=== PATIENT | female | born 1995 | race Caucasian/White ===

== ENCOUNTER 2016-02-29 11:15 | Emergency (ER) | payer BC, OTHER ==
[2016-02-29 11:27] VITALS: TEMP 97.8
--- NOTE | 2016-02-29 12:06 | ED ---
Abdominal Pain HPI - General Chief Complaint: Abdominal Pain Stated Complaint: cramping, preg unknown Time Seen by Provider: 02/29/16 11:40 Source: patient, RN notes reviewed Mode of arrival: ambulatory Limitations: no limitations - History of Present Illness Initial Comments: 20-year-old female presents emergency Department chief complaint of abdominal cramping . Patient states she recently found out she was using at home tests. Patient states she is A0. Patient is unsure how far along she is. She states that the last no menstrual cycle was at the beginning severed though she states she only had a day of bleeding. She states prior to that it was at the end of November. Patient denies any vomiting states she has occasional nausea. Denies any fever, chills, dysuria. Denies any vaginal bleeding or vaginal discharge. Patient states she contacted Dr. Ray and is waiting for an appointment. - Related Data Home Medications Medication Instructions Recorded Confirmed Albuterol Inhaler [Ventolin Hfa 1 - 2 puff INHALATION RT-Q6H PRN 12/05/15 Inhaler] Pnv with Ca,No.72/Iron/FA 1 tab PO DAILY 02/29/16 02/29/16 [ Plus Tablet] Allergies Allergy/AdvReac Type Severity Reaction Status Date / Time No Known Allergies Allergy Verified 02/29/16 11:27 Review of Systems ROS Statement: Those systems with pertinent positive or pertinent negative responses have been documented in the HPI. ROS Other: All systems not noted in ROS Statement are negative. Past Medical History Past Medical History: No Reported History History of Any Multi-Drug Resistant Organisms: None Reported Past Surgical History: No Surgical Hx Reported Past Psychological History: Anxiety, Depression Smoking Status: Former smoker Past Alcohol Use History: Occasional Past Drug Use History: Marijuana General Exam Limitations: no limitations General appearance: alert, in no apparent distress Head exam: Present: atraumatic, normocephalic, normal inspection Respiratory exam: Present: normal lung sounds bilaterally. Absent: respiratory distress, wheezes, rales, rhonchi, stridor Cardiovascular Exam: Present: regular rate, normal rhythm, normal heart sounds. Absent: systolic murmur, diastolic murmur, rubs, gallop, clicks GI/Abdominal exam: Present: soft, normal bowel sounds. Absent: distended, tenderness, guarding, rebound, rigid Skin exam: Present: warm, dry, intact, normal color. Absent: rash Course Vital Signs 02/29/16 11:24 Temperature 97.8 F Pulse Rate 90 Respiratory 20 Rate Blood Pressure 135/90 O2 Sat by Pulse 99 Oximetry Medical Decision Making - Medical Decision Making Patient declined testing which included HIV, hepatitis and syphilis testing 20-year-old female presented for abdominal cramping . Patient ultrasound does not reveal any IUP at this time though her beta hCG is only 219. Patient is early in . Patient will follow-up with her own joint for repeat hCG levels. Patient refused pelvic exam. - Lab Data Result diagrams: 02/29/16 12:05 02/29/16 12:05 Lab Results 02/29/16 02/29/16 02/29/16 Range/Units 12:05 12:05 12:05 WBC 9.2 (4.0-11.0) k/uL RBC 4.38 (3.80-5.40) m/uL Hgb 12.7 (11.4-16.0) gm/dL Hct 38.5 (34.0-46.0) % MCV 87.9 (80.0-100.0) fL MCH 28.9 (25.0-35.0) pg MCHC 32.9 (31.0-37.0) g/dL RDW 13.0 (11.5-15.5) % Plt Count 299 (150-450) k/uL Neutrophils % 59 % Lymphocytes % 30 % Monocytes % 7 % Eosinophils % 1 % Basophils % 0 % Neutrophils # 5.4 (1.3-7.7) k/uL Lymphocytes # 2.8 (1.0-4.8) k/uL Monocytes # 0.6 (0-1.0) k/uL Eosinophils # 0.1 (0-0.7) k/uL Basophils # 0.0 (0-0.2) k/uL Sodium 141 (137-145) mmol/L Potassium 4.1 (3.5-5.1) mmol/L Chloride 105 (98-107) mmol/L Carbon Dioxide 23 (22-30) mmol/L Anion Gap 13 mmol/L BUN 9 (7-17) mg/dL Creatinine 0.68 (0.52-1.04) mg/dL Est GFR (MDRD) Af Amer >60 (>60 ml/min/1.73 sqM) Est GFR (MDRD) Non-Af >60 (>60 ml/min/1.73 sqM) Glucose 97 (74-99) mg/dL Calcium 9.2 (8.4-10.2) mg/dL HCG, Quant 214.8 mIU/mL Urine Color Urine Appearance (Clear) Urine pH (5.0-8.0) Ur Specific Leland (1.001-1.035) Urine Protein (Negative) Urine Glucose (UA) (Negative) Urine Ketones (Negative) Urine Blood (Negative) Urine Nitrate (Negative) Urine Bilirubin (Negative) Urine Urobilinogen (<2.0) mg/dL Ur Leukocyte Esterase (Negative) Urine RBC (0-5) /hpf Urine WBC (0-5) /hpf Ur Squamous Epith Cells (0-4) /hpf Urine Bacteria (None) /hpf Urine Mucus (None) /hpf Blood Type A Positive Blood Type Recheck No 02/29/16 Range/Units 12:05 WBC (4.0-11.0) k/uL RBC (3.80-5.40) m/uL Hgb (11.4-16.0) gm/dL Hct (34.0-46.0) % MCV (80.0-100.0) fL MCH (25.0-35.0) pg MCHC (31.0-37.0) g/dL RDW (11.5-15.5) % Plt Count (150-450) k/uL Neutrophils % % Lymphocytes % % Monocytes % % Eosinophils % % Basophils % % Neutrophils # (1.3-7.7) k/uL Lymphocytes # (1.0-4.8) k/uL Monocytes # (0-1.0) k/uL Eosinophils # (0-0.7) k/uL Basophils # (0-0.2) k/uL Sodium (137-145) mmol/L Potassium (3.5-5.1) mmol/L Chloride (98-107) mmol/L Carbon Dioxide (22-30) mmol/L Anion Gap mmol/L BUN (7-17) mg/dL Creatinine (0.52-1.04) mg/dL Est GFR (MDRD) Af Amer (>60 ml/min/1.73 sqM) Est GFR (MDRD) Non-Af (>60 ml/min/1.73 sqM) Glucose (74-99) mg/dL Calcium (8.4-10.2) mg/dL HCG, Quant mIU/mL Urine Color Yellow Urine Appearance Cloudy H (Clear) Urine pH 6.0 (5.0-8.0) Ur Specific Leland 1.022 (1.001-1.035) Urine Protein Trace H (Negative) Urine Glucose (UA) Negative (Negative) Urine Ketones Negative (Negative) Urine Blood Trace H (Negative) Urine Nitrate Negative (Negative) Urine Bilirubin Negative (Negative) Urine Urobilinogen <2.0 (<2.0) mg/dL Ur Leukocyte Esterase Trace H (Negative) Urine RBC 7 H (0-5) /hpf Urine WBC 4 (0-5) /hpf Ur Squamous Epith Cells 11 H (0-4) /hpf Urine Bacteria Rare H (None) /hpf Urine Mucus Few H (None) /hpf Blood Type Blood Type Recheck Disposition Clinical Impression: Abdominal pain during Disposition: HOME SELF-CARE Condition: Stable Instructions: Abdominal Pain in (ED) Additional Instructions: Please return to the Emergency Department if symptoms worsen or any other concerns. Time of Disposition: 13:22
[2016-02-29 12:22] LABS: Basophils % (A) 0 %; CH 28.4; CHCM 32.5; Eosinophils # (A) 0.1 k/uL (0-0.7); Eosinophils % (A) 1 %; HCT 38.5 % (34.0-46.0); HDW 2.34; HGB 12.7 gm/dL (11.4-16.0); Luc # (Auto) 0.25; Luc % (Auto) 3; Lymphocytes # (A) 2.8 k/uL (1.0-4.8); Lymphocytes % (A) 30 %; MCH 28.9 pg (25.0-35.0); MCHC 32.9 g/dL (31.0-37.0); MCV 87.9 fL (80.0-100.0); Monocytes # (A) 0.6 k/uL (0-1.0); Monocytes % (A) 7 %; Neutrophils # (A) 5.4 k/uL (1.3-7.7); Neutrophils % (A) 59 %; RBC 4.38 m/uL (3.80-5.40); WBC 9.2 k/uL (4.0-11.0); WBC (Perox) 9.04
[2016-02-29 12:31] LABS: Appearance,Urine Cloudy (Clear); Bacteria,Urine Rare /hpf; Bilirubin,Urine Negative (Negative); Glucose,Urine (UA) Negative (Negative); Ketones,Urine Negative (Negative); Leukocyte Esterase,Urine Trace (Negative); Mucus,Urine Few /hpf; Nitrite,Urine Negative (Negative); Particle Count 10126; Protein,Urine Trace (Negative); RBC,Urine 7 /hpf (0-5); Specific Gravity,Urine 1.022 (1.001-1.035); Squamous Epithelial Cell,Urine 11 /hpf (0-4); UA Billing (MACRO vs. MICRO) MICRO; Urobilinogen,Urine <2.0 mg/dL (<2.0); WBC,Urine 4 /hpf (0-5)
[2016-02-29 12:32] LABS: Anion Gap 13 mmol/L; Blood Urea Nitrogen 9 mg/dL (7-17); Calcium 9.2 mg/dL (8.4-10.2); Carbon Dioxide 23 mmol/L (22-30); Chloride 105 mmol/L (98-107); Glucose 97 mg/dL (74-99); Non-African American GFR(MDRD) >60 (>60 ml/min/1.73 sqM); Potassium 4.1 mmol/L (3.5-5.1); Sodium 141 mmol/L (137-145)
[2016-02-29 12:50] LABS: HCG,Quantitative Serum 214.8 mIU/mL
--- NOTE | 2016-02-29 13:08 | US ---
EXAMINATION TYPE: US OB <= 14 wk fetus DATE OF EXAM: 02/29/2016 12:33 PM COMPARISON: NONE CLINICAL HISTORY: Patient took a home test that came back positive and is having cramping EXAM PERFORMED: Transabdominal (TA) EXAM MEASUREMENTS: GESTATIONAL AGE / DATING Physician Established: not yet established Dates by LMP: (4 weeks/0 days) EDC: 11/07/16 Dates by First Scan: 1st scan today Dates by Current Scan: unable to date by today's scan MATERNAL ANATOMY Uterus: 7.9 x 4.0 x 4.6cm Right Ovary: 3.1 x 2.3 x 2.7cm Left Ovary: 2.7 x 1.9 x 1.9cm Post CDS / Adnexa: wnl GESTATION / SURVEY IUP: No IUP seen at this time Date of LMP: 02/01/2016 Beta HcG (if available): not available TECHNOLOGIST IMPRESSION: No IUP seen at this time, thickened endometrium at 1.7cm IMPRESSION: We have not identified intrauterine or extrauterine gestation at this time. Short-term follow-up +/- 0 beta hCGs would be suggested.
[2016-02-29 13:36] VITALS: BP 134/81; PULSE 86; RESP 18
== END 2016-02-29 13:36 | disposition home or self-care (01) ==
LOC: EC 11:15
DX: O26.891 Other specified pregnancy related conditions, first trimester (principal); Z3A.01 Less than 8 weeks gestation of pregnancy; R10.9 Unspecified abdominal pain; Z79.899 Other long term (current) drug therapy; Z87.891 Personal history of nicotine dependence
CPT/HCPCS: 36415; 76801; 80048; 81001; 84702; 85025; 86900; 86901; 99284

== ENCOUNTER → 2016-04-20 | Outpatient (CLI) | payer BC, OTHER ==
--- NOTE | 2016-04-20 17:22 | US ---
EXAMINATION TYPE: US OB <= 14 wk fetus DATE OF EXAM: 04/20/2016 4:28 PM COMPARISON: NONE CLINICAL HISTORY: 20-year-old female, Z36 Confirm Dates. Date of LMP: 02/01/16 Beta HcG (if available): unavailable EXAM PERFORMED: Transabdominal (TA) FINDINGS: EXAM MEASUREMENTS: GESTATIONAL AGE / DATING Physician Established: not established Dates by LMP: (11 weeks/2 days) EDC: 11/07/16 Dates by First Scan: unable to visualize IUP on prior exam Dates by Current Scan for: (12 weeks/0 days) EDC: 11/02/16 MATERNAL ANATOMY Uterus: 12.3 x 7.3 x 8.5cm Right Ovary: 3.7 x 2.6 x 1.8cm Left Ovary: 2.7 x 2.5 x 1.3cm Post CDS / Adnexa: appears wnl Presence of free fluid: no Presence of corpus luteal cyst: yes, hypoechoic area right ovary = 1.9 x 1.6 x 2.1cm GESTATION / SURVEY CRL: 5.3cm (12 weeks/0 days) Yolk Sac (normal less than 6mm): 3.7 mm Heart Rate: 149 bpm Rhythm: Normal IUP: Viable IUP Nuchal Translucency 10-14wks (normal less than 3mm): 1.8 mm TECHNOLOGIST NOTES: Single viable IUP 12wks/0days with RAYNE of 11/02/16. Probable corpus luteum righ t ovary IMPRESSION: 1. Single live intrauterine with estimated gestational age of 11 weeks 2 days by LMP. Curre nt ultrasound biometry places the gestation at 12 weeks 0 days by crown-rump length. Clinically corre late. 2. Complete survey recommended at 18-20 weeks.
== END | disposition home or self-care (01) ==
LOC: RADUSWWP 16:11
PROVIDERS: ATTEND Obstetrics & Gynecology
DX: Z36 Encounter for antenatal screening of mother (principal); Z3A.12 12 weeks gestation of pregnancy
CPT/HCPCS: 76801; 76813

== ENCOUNTER 2016-05-31 22:16 | Emergency (ER) | payer BC, OTHER ==
[2016-05-31 22:25] VITALS: BP 139/83; PULSE 95; RESP 18; TEMP 98
[2016-05-31] MEDS ORDERED: ACET/COD 300 MG/30 MG STARTER PACK 6 TAB BTL PO STA (22:40)
--- NOTE | 2016-05-31 22:43 | ED ---
Burn/Smoke HPI - General Chief complaint: Burn/Smoke Inhalation Stated complaint: burn Source: patient, RN notes reviewed Mode of arrival: ambulatory Limitations: no limitations - History of Present Illness Initial comments: Patient is a 20-year-old [employer] chief complaint of a burn from hot soup over her right upper thigh and right great toe. She reports that she was pulling a boiling water and spilled on her thigh. She states that the area of burn measures to be approximately the size of her hand. Patient is currently 17 weeks and is concerned that she is unable to have certain creams due to the fact she is . Patient states that she hasn't had any flores or injuries to her right leg or foot before. She reports that she is able to ambulate. She states that there is blistering over the thigh burn but no evidence of blistering or irritation over the great toe. - Related Data Previous Rx's Medication Instructions Recorded Acetaminophen-Codeine 300-30mg 1 tab PO Q8H PRN #8 tablet 05/31/16 [Tylenol #3] Allergies Allergy/AdvReac Type Severity Reaction Status Date / Time No Known Allergies Allergy Verified 05/31/16 22:25 Review of Systems ROS Statement: Those systems with pertinent positive or pertinent negative responses have been documented in the HPI. ROS Other: All systems not noted in ROS Statement are negative. Past Medical History Past Medical History: No Reported History History of Any Multi-Drug Resistant Organisms: None Reported Past Surgical History: No Surgical Hx Reported Past Psychological History: Anxiety, Bipolar, Depression Smoking Status: Former smoker Past Alcohol Use History: None Reported, Occasional Past Drug Use History: Marijuana General Exam - General Exam Comments Initial Comments: Pleasant 20-year-old female. No acute distress. Limitations: no limitations General appearance: alert, in no apparent distress Head exam: Present: atraumatic, normocephalic, normal inspection Eye exam: Present: normal appearance, PERRL, EOMI. Absent: scleral icterus, conjunctival injection, periorbital swelling ENT exam: Present: normal exam, mucous membranes moist Neck exam: Present: normal inspection. Absent: tenderness, meningismus, lymphadenopathy Respiratory exam: Present: normal lung sounds bilaterally. Absent: respiratory distress, wheezes, rales, rhonchi, stridor Cardiovascular Exam: Present: regular rate, normal rhythm, normal heart sounds. Absent: systolic murmur, diastolic murmur, rubs, gallop, clicks GI/Abdominal exam: Present: soft, normal bowel sounds. Absent: distended, tenderness, guarding, rebound, rigid Extremities exam: Present: normal inspection, full ROM, normal capillary refill. Absent: tenderness, pedal edema, joint swelling, calf tenderness Back exam: Present: normal inspection Neurological exam: Present: alert, oriented X3, CN II-XII intact Psychiatric exam: Present: normal affect, normal mood Skin exam: Present: warm, dry, intact, normal color, erythema (Erythema and blistering over the area of burn over the right upper thigh. Slight erythema over the great toe near the nailbed. No evidence of blistering.). Absent: rash Expanded 1 - 2nd degree burn measuring 1% total body sufrace area. 2 - slight erythema over great toe near nail, no blistering. Course Vital Signs 05/31/16 22:24 Temperature 98.0 F Pulse Rate 95 Respiratory 18 Rate Blood Pressure 139/83 O2 Sat by Pulse 97 Oximetry Medical Decision Making - Medical Decision Making Patient is a 20-year-old female with a second-degree burn over her right thigh measuring approximately 1% of total body surface area. Significant blistering. Patient was given ice to put over the burn. There is also evidence of erythema over the right great toe towards the nail blood. No evidence of blistering on the toe. Patient has full range of motion of the leg and no evidence of any other flores on the body. Patient reports that she does not want received Silvadene cream as this could be toxic to the unborn child. She has chronic 17 weeks . Patient will be discharged with a Tylenol 3 starter pack for pain and a very short prescription for Tylenol 3 for the pain. Also discussed apply antibiotic ointment [id number] such as Neosporin with pain relief over the wound and to keep it covered. Patient's family and patient agree with treatment plan will comply. Return parameters were discussed. Disposition Clinical Impression: Burn of thigh, right, Burn of first degree of right toe(s) (nail), initial encounter Disposition: HOME SELF-CARE Condition: Good Instructions: Second Degree Burn (ED) Additional Instructions: Continue to apply ice over the area. Keep the wound covered and apply triple antibiotic ointment over the area since it started to open. Do not pick at the blistering. Return to the emergency department if any alarming signs or symptoms occur. Remain hydrated. Only take pain medication erratically to help with sleep with the pain. Prescriptions: Acetaminophen-Codeine 300-30mg [Tylenol #3] 1 tab PO Q8H PRN #8 tablet PRN Reason: Pain Referrals: Leana Flanagan MD [Primary Care Provider] - 1-2 days Time of Disposition: 22:41
== END 2016-05-31 22:54 | disposition home or self-care (01) ==
LOC: EC 22:16
DX: O9A.219 Injury, poisoning and certain other consequences of external causes complicating pregnancy, unspecified trimester (principal); T24.211A Burn of second degree of right thigh, initial encounter; T25.131A Burn of first degree of right toe(s) (nail), initial encounter; T31.0 Burns involving less than 10% of body surface; Z87.891 Personal history of nicotine dependence; Z3A.17 17 weeks gestation of pregnancy; X10.0XXA Contact with hot drinks, initial encounter
CPT/HCPCS: 99283

== ENCOUNTER → 2016-06-06 | Outpatient (CLI) | payer BC, OTHER ==
[2016-06-06 16:39] LABS: CH 28.8; CHCM 32.7; HGB 12.1 gm/dL (11.4-16.0); MCH 29.7 pg (25.0-35.0); MCHC 33.5 g/dL (31.0-37.0); MCV 88.5 fL (80.0-100.0); Mean Platelet Volume 7.7; RBC 4.06 m/uL (3.80-5.40); RDW 13.8 % (11.5-15.5); WBC 12.5 k/uL (4.0-11.0)
[2016-06-06 16:45] LABS: Glucose 100 mg/dL (74-99); Non-African American GFR(MDRD) >60 (>60 ml/min/1.73 sqM)
[2016-06-06 17:15] LABS: Hepatitis B Surface Ag Index 0.05
[2016-06-07 06:21] LABS: Toxoplasma Antibody (IgG) <3.0 IU/mL (<7.2)
[2016-06-07 08:20] LABS: HIV-1/HIV-2 Ab Screen NONREAC (NON REAC)
[2016-06-07 12:59] LABS: Alpha Fetoprotein 37.3 ng/mL; Alpha Fetoprotein (M.O.M) 1.25; B-HCG (M.O.M.) 0.81; Gestational Age (days) 0; Human Chorionic Gonadotropin 14.1 IU/mL; Inhibin A (M.O.M.) 1.11; Interpretation SeeBelow; Maternal Age at EDD (Yrs) 19; Unconjugated Estriol (M.O.M.) 0.78
== END | disposition home or self-care (01) ==
LOC: LABWHC1 16:00
PROVIDERS: ATTEND Obstetrics & Gynecology
DX: Z34.82 Encounter for supervision of other normal pregnancy, second trimester (principal); Z3A.00 Weeks of gestation of pregnancy not specified
CPT/HCPCS: 36415; 82105; 82565; 82677; 82947; 83021; 84702; 85027; 86336; 86762; 86777; 86778; 86780; 86850; 86900; 86901; 87340; 87389

== ENCOUNTER → 2016-07-19 | Outpatient (CLI) | payer BC, OTHER ==
[2016-07-19 11:26] LABS: CH 29.1; CHCM 31.7; HCT 36.8 % (34.0-46.0); HGB 11.9 gm/dL (11.4-16.0); MCHC 32.5 g/dL (31.0-37.0); MCV 92.4 fL (80.0-100.0); Mean Platelet Volume 7.4; RBC 3.98 m/uL (3.80-5.40); RDW 13.7 % (11.5-15.5); WBC 12.9 k/uL (4.0-11.0)
== END | disposition home or self-care (01) ==
LOC: LABWHC1 09:46
PROVIDERS: ATTEND Obstetrics & Gynecology
DX: Z34.02 Encounter for supervision of normal first pregnancy, second trimester (principal); Z3A.00 Weeks of gestation of pregnancy not specified
CPT/HCPCS: 36415; 82950; 85027

== ENCOUNTER → 2016-07-27 | Outpatient (CLI) | payer BC, OTHER ==
[2016-07-27 12:52] LABS: Glucose 3 Hour, Gest 123 mg/dL
== END | disposition home or self-care (01) ==
LOC: LABWHC1 08:37
PROVIDERS: ATTEND Obstetrics & Gynecology
DX: O99.810 Abnormal glucose complicating pregnancy (principal); Z3A.00 Weeks of gestation of pregnancy not specified
CPT/HCPCS: 36415; 82951; 82952

== ENCOUNTER 2016-08-27 16:14 | Emergency (ER) | payer BC ==
[2016-08-27 16:37] VITALS: BP 130/80; PULSE 87; RESP 20; TEMP 98.8
--- NOTE | 2016-08-27 17:12 | ED ---
ENT HPI - General Chief complaint: Dental/Oral Stated complaint: Dental Pain Time Seen by Provider: 08/27/16 16:54 Source: patient, RN notes reviewed Mode of arrival: ambulatory Limitations: no limitations - History of Present Illness Initial comments: 20 yo female presents to the emergency Department chief complaint of left upper dental pain. She recently had a tooth filled and has since had pain in the area. She called her dentist in the office is closed. It is taking Tylenol without improvement. They were thinking maybe she needed antibiotic. His been no drainage or discharge from the area no fever or chills. Patient states "mouth. There is no radiation into the neck. Patient denies any recent fever, chills, shortness of breath, chest pain, back pain, abdominal pain, nausea vomiting, numbness or tingling, dysuria or hematuria, constipation or diarrhea, headaches or visual changes, or any other current symptoms. - Related Data Previous Rx's Medication Instructions Recorded Acetaminophen-Codeine 300-30mg 1 tab PO Q8H PRN #8 tablet 05/31/16 [Tylenol #3] Penicillin V Potassium [Pen Vee K] 500 mg PO TID #40 tab 08/27/16 Allergies Allergy/AdvReac Type Severity Reaction Status Date / Time No Known Allergies Allergy Verified 05/31/16 22:25 Review of Systems ROS Statement: Those systems with pertinent positive or pertinent negative responses have been documented in the HPI. ROS Other: All systems not noted in ROS Statement are negative. Past Medical History Past Medical History: No Reported History History of Any Multi-Drug Resistant Organisms: None Reported Past Surgical History: No Surgical Hx Reported Past Psychological History: Anxiety, Bipolar, Depression Smoking Status: Former smoker Past Alcohol Use History: None Reported, Occasional Past Drug Use History: Marijuana General Exam Limitations: no limitations General appearance: alert, in no apparent distress Eye exam: Present: normal appearance, PERRL, EOMI. Absent: scleral icterus, conjunctival injection, periorbital swelling ENT exam: Present: normal exam, mucous membranes moist Expanded Ear exam: Present: normal external inspection Mouth exam: Present: normal external inspection Teeth exam: Present: dental caries (Diffusely), dental tenderness # (13), other (No abscess noted) Throat exam: normal inspection, tonsillar erythema Neck exam: Present: normal inspection. Absent: tenderness, meningismus, lymphadenopathy Respiratory exam: Present: normal lung sounds bilaterally. Absent: respiratory distress, wheezes, rales, rhonchi, stridor Cardiovascular Exam: Present: regular rate, normal rhythm, normal heart sounds. Absent: systolic murmur, diastolic murmur, rubs, gallop, clicks Neurological exam: Present: alert, oriented X3 Psychiatric exam: Present: normal affect, normal mood Skin exam: Present: warm, dry, intact, normal color. Absent: rash Course Vital Signs 08/27/16 16:35 Temperature 98.8 F Pulse Rate 87 Respiratory 20 Rate Blood Pressure 130/80 O2 Sat by Pulse 99 Oximetry Medical Decision Making - Medical Decision Making 20-year-old female presents emergency room chief complaint of left-sided dental pain. At this time the patient will be started on Pen-Vee K and Tylenol for pain control. We discussed return parameters and follow-up. Patient stated that she understood all questions have been answered. She will be discharged. Disposition Clinical Impression: Dental caries Disposition: HOME SELF-CARE Condition: Stable Instructions: Dental Caries (ED) Additional Instructions: Please use medication as discussed. Please follow up with family doctor if symptoms have not improved over the next two days. Please return to the emergency room if your symptoms increase or worsen or for any other concerns. Prescriptions: Penicillin V Potassium [Pen Vee K] 500 mg PO TID #40 tab Referrals: Leana Flanagan MD [Primary Care Provider] - 1-2 days Time of Disposition: 17:12
== END 2016-08-27 17:17 | disposition home or self-care (01) ==
LOC: EC 16:14
DX: K02.9 Dental caries, unspecified (principal); Z87.891 Personal history of nicotine dependence
CPT/HCPCS: 99282

== ENCOUNTER 2016-10-18 23:05 | Outpatient (CLI) | payer BC ==
[2016-10-18 23:50] VITALS: BP 111/59; PULSE 93; RESP 16; TEMP 96.4
--- NOTE | 2016-10-19 07:52 | P.MSEPDOC ---
Presenting Problems - Arrival Data Date of Arrival on Unit: 10/18/16 Time of Arrival on Unit: 23:05 Mode of Transport: Wheelchair - Complaint OB-Reason for Admission/Chief Complaint: Pain Comment: numeric scale "6", lower abd pain x2 days, constant Medical History - Information : 1 Para: 0 Term: 0 : 0 Abortions: Spontaneous or Elective: 0 Number of Living Children: 0 - Gestational Age Expected Date of Delivery: 11/07/16 Gestational Age by RAYNE (wks/days): 37 Weeks and 2 Days Review of Systems - Review of Systems Constitutional: No problems Breast: No problems ENT: No problems Cardiovascular: No problems Respiratory: No problems Gastrointestinal: No problems Genitourinary: No problems Musculoskeletal: No problems Neurological: No problems Skin: No problems Vital Signs - Temperature Temperature: 96.4 F Temperature Source: Temporal Artery Scan - Pulse Right Sitting Brachial Pulse Rate: 93 Pulse Assessment Method: Automatic Cuff - Respirations Respiratory Rate: 16 Oxygen Delivery Method: Room Air O2 Sat by Pulse Oximetry: 97 - Blood Pressure Right Arm Sitting Blood Pressure: 111/59 Blood Pressure Mean: 76 Blood Pressure Source: Automatic Cuff Medical Screen Scoring (Pre) - Cervical Exam Dilation: 1-3 cm = 1 Effacement: More than 50% = 2 Membranes: Intact - Uterine Contractions Frequency: N/A Duration: N/A Intensity: N/A - Maternal Vital Signs Maternal Temperature: N/A Maternal Blood Pressure: N/A Signs of Preeclampsia: N/A - Assessment Baseline FHR: 155 Heart Rate - NICHD Category: Category I (Normal) = 0 NST: Reactive Position: N/A - Total Score Total Score (Pre): 3 - Level of Risk Level of Risk: N/A Physician Notification (Pre) - Physician Notified Physician Notified Date: 10/18/16 Physician Notified Time: 23:40 Spoke With: dr estrada New Order Received: Yes - Notification Comment Comment: discharge home Disposition - Disposition OB Disposition: Discharge to home Discharge Date: 10/18/16 Discharge Time: 23:49 I agree with the RN Medical Screening Exam: No Risk & Benefit of care provided described in d/c instruction: No Diagnosis: FALSE LABOR AT OR AFTER 37 COMPLETED WEEKS OF GESTATION
== END 2016-10-18 23:49 | disposition home or self-care (01) ==
LOC: FBPOP 23:05
PROVIDERS: ATTEND Obstetrics & Gynecology
DX: O47.1 False labor at or after 37 completed weeks of gestation (principal); Z3A.37 37 weeks gestation of pregnancy
CPT/HCPCS: 59025; 99213

== ENCOUNTER 2016-10-29 02:05 | Outpatient (CLI) | payer BC ==
[2016-10-29 03:51] VITALS: BP 118/72; PULSE 81; RESP 16; TEMP 97.6
--- NOTE | 2016-10-31 08:00 | P.MSEPDOC ---
Presenting Problems - Arrival Data Date of Arrival on Unit: 10/29/16 Time of Arrival on Unit: 02:04 Mode of Transport: Wheelchair - Complaint OB-Reason for Admission/Chief Complaint: Possible Onset of Labor Medical History - Information : 1 Para: 0 - Gestational Age Expected Date of Delivery: 11/07/16 Gestational Age by RAYNE (wks/days): 39 Weeks and 0 Days Review of Systems - Review of Systems Constitutional: No problems Breast: No problems ENT: No problems Cardiovascular: No problems Respiratory: No problems Gastrointestinal: No problems Genitourinary: No problems Musculoskeletal: No problems Neurological: No problems Skin: No problems Vital Signs - Temperature Temperature: 97.6 F Temperature Source: Temporal Artery Scan - Pulse Right Sitting Brachial Pulse Rate: 81 Pulse Assessment Method: Automatic Cuff - Respirations Respiratory Rate: 16 Oxygen Delivery Method: Room Air O2 Sat by Pulse Oximetry: 97 - Blood Pressure Right Arm Sitting Blood Pressure: 118/72 Blood Pressure Mean: 87 Blood Pressure Source: Automatic Cuff Medical Screen Scoring (Pre) - Cervical Exam Dilation: 1-3 cm = 1 Effacement: More than 50% = 2 Membranes: Intact - Uterine Contractions Frequency: > 5 minutes apart = 1 Duration: > 40 seconds = 2 Intensity: Contraction palpated strong = 1 - Maternal Vital Signs Maternal Temperature: N/A Maternal Blood Pressure: N/A Signs of Preeclampsia: N/A Maternal Respirations: N/A - Maternal Trauma Maternal Trauma: N/A - Assessment Baseline FHR: 130 Heart Rate - NICHD Category: Category I (Normal) = 0 NST: Reactive Position: N/A - Total Score Total Score (Pre): 7 - Level of Risk Level of Risk: Medium (6-9) Physician Notification (Pre) - Physician Notified Physician Notified Date: 10/29/16 Physician Notified Time: 03:30 Spoke With: dr kalyan Cantor Order Received: Yes Disposition - Disposition OB Disposition: Discharge to home Discharge Date: 10/29/16 Discharge Time: 03:34 I agree with the RN Medical Screening Exam: Yes Risk & Benefit of care provided described in d/c instruction: Yes Diagnosis: FALSE LABOR AT OR AFTER 37 COMPLETED WEEKS OF GESTATION
== END 2016-10-29 03:34 | disposition home or self-care (01) ==
LOC: FBPOP 02:05
PROVIDERS: ATTEND Obstetrics & Gynecology
DX: O47.1 False labor at or after 37 completed weeks of gestation (principal); Z3A.39 39 weeks gestation of pregnancy
CPT/HCPCS: 59025; 99213

== ENCOUNTER 2016-10-29 06:52 | Inpatient (IN) | payer BC, OTHER ==
[2016-10-29] MEDS ORDERED: CARBOPROST TROMETHAMINE 250 MCG/ML 1 ML AMP IM PRN (07:34)
[2016-10-29] MEDS ORDERED: TERBUTALINE 1 MG/ML VIAL SQ PRN (07:34)
[2016-10-29] MEDS ORDERED: LIDOCAINE 1% (PF) 10 MG/ML (30 ML SDV) SQ PRN (07:34)
[2016-10-29] MEDS ORDERED: METHYLERGONOVINE 0.2 MG/ML 1 ML AMP IM PRN (07:34)
[2016-10-29] MEDS ORDERED: OXYTOCIN 10 UNIT/ML 1 ML VIAL IM PRN (07:34)
[2016-10-29 07:45] LABS: Basophils # (A) 0.1 k/uL (0-0.2); Basophils % (A) 1 %; CH 29.2; CHCM 34.2; Eosinophils # (A) 0.1 k/uL (0-0.7); Eosinophils % (A) 1 %; HCT 36.3 % (34.0-46.0); HDW 2.78; HGB 11.9 gm/dL (11.4-16.0); Luc # (Auto) 0.32; Luc % (Auto) 2; Lymphocytes # (A) 2.7 k/uL (1.0-4.8); Lymphocytes % (A) 19 %; MCH 28.2 pg (25.0-35.0); MCHC 32.8 g/dL (31.0-37.0); Mean Platelet Volume 7.9; Monocytes # (A) 0.8 k/uL (0-1.0); Monocytes % (A) 6 %; Neutrophils # (A) 10.3 k/uL (1.3-7.7); Neutrophils % (A) 72 %; RBC 4.22 m/uL (3.80-5.40); RDW 14.3 % (11.5-15.5); WBC 14.3 k/uL (4.0-11.0); WBC (Perox) 14.95
[2016-10-29] MEDS: LACTATED RINGERS 1,000 ML IV SCH ×2 (07:51→08:57)
[2016-10-29] MEDS ORDERED: fentaNYL (PF) 50 MCG/ML 5 ML AMP ONE (08:29)
[2016-10-29] MEDS ORDERED: BUPIVACAINE (PF) 0.25% 30 ML VIAL ONE (08:29)
[2016-10-29] MEDS ORDERED: SODIUM CHLORIDE 0.9% 100 ML BAG ONE (08:29)
[2016-10-29] MEDS ORDERED: BUPIVACAINE (PF) 0.25% 25 ML, fentaNYL (PF) 200 MCG in SODIUM CHLORIDE 0.9% 71 ML EPIDURAL ONE (09:16)
[2016-10-29] MEDS ORDERED: OXYTOCIN 20 UNITS/1000 ML NS 1,000 ML IV SCH (10:00)
[2016-10-29] MEDS ORDERED: WITCH HAZEL 1 EACH MED..PAD TOPICAL PRN (14:46)
[2016-10-29] MEDS ORDERED: IBUPROFEN 600 MG TAB PO PRN (14:46)
[2016-10-29] MEDS ORDERED: diphenhydrAMINE 50 MG CAP PO PRN (14:46)
[2016-10-29] MEDS ORDERED: LANOLIN CREAM 5 GM TUBE TOPICAL PRN (14:46)
[2016-10-29] MEDS ORDERED: SIMETHICONE 80 MG CHEWABLE PO PRN (14:46)
[2016-10-29] MEDS ORDERED: HYDROCORTISONE 2.5% RECTAL CREAM 30 GM TUBE RECTAL PRN (14:46)
[2016-10-29] MEDS ORDERED: ZOLPIDEM 5 MG TAB PO PRN (14:46)
[2016-10-29] MEDS ORDERED: Acetaminophen-Codeine 300-30mg TAB PO PRN ×2 (14:46)
[2016-10-29] MEDS ORDERED: diphenhydrAMINE 50 MG/ML 1 ML VIAL IVP PRN ×2 (14:46)
[2016-10-29] MEDS ORDERED: MEASLES-MUMPS-RUBELLA VACC/PF 12,500 UNIT/0.5 ML VIAL SQ ONE (14:46)
[2016-10-29] MEDS ORDERED: ACETAMINOPHEN TAB 325 MG TAB PO PRN (14:46)
[2016-10-29] MEDS ORDERED: diphenhydrAMINE 25 MG CAP PO PRN (14:46)
[2016-10-29] MEDS ORDERED: BENZOCAINE/MENTHOL SPRAY 1 GM/SPRAY AEROSOL TOPICAL PRN (14:46)
--- NOTE | 2016-10-29 14:49 | P.HPOB ---
History of Present Illness H&P Date: 10/29/16 Chief Complaint: IUP term: active labor Dona's 20-year-old at 38 weeks 5 days gestation who arrives in active labor. She is making cervical change and was admitted dilated to 4 cm. I did see the patient and she was dilated to 6 cm and artificial rupture membranes was performed and moderate meconium is noted. We'll have anesthesia present for delivery. Her course had been, K by a need for repeat canal but otherwise the was unremarkable. Her pertinent labs include A+ blood type Rh and was negative. Rubella was nonimmune, hepatitis B surface antigen/ RPR and HIV as well as GBS were all negative. On physical exam vital signs are stable and afebrile. Heart regular, lungs clear, extremities without pain. Osteopathic exams unremarkable. heart tones were in the 140s and reactive. It is noted that she had a positive THC degree urine during the for which she stated that she was taking it because she could not eat her gain weight. She was advised earlier to not do that any more after that 1 incision. Assessment intrauterine at term. Plan expect spontaneous vaginal delivery and expect epidural for analgesia. Past Medical History Past Medical History: No Reported History History of Any Multi-Drug Resistant Organisms: None Reported Past Surgical History: No Surgical Hx Reported Past Anesthesia/Blood Transfusion Reactions: No Reported Reaction Past Psychological History: Anxiety, Bipolar, Depression Smoking Status: Never smoker Past Alcohol Use History: None Reported, Occasional Past Drug Use History: Marijuana - Past Family History Mother Family Medical History: Diabetes Mellitus, Hypertension Medications and Allergies Allergies Allergy/AdvReac Type Severity Reaction Status Date / Time No Known Allergies Allergy Verified 10/18/16 23:23 Exam Osteopathic Statement: *. No significant issues noted on an osteopathic structural exam other than those noted in the History and Physical/Consult. - Vital Signs Vital signs: Vital Signs Temp Pulse Resp BP BP Pulse Ox 10/29/16 07:14 96.4 F L 83 16 128/70 99 10/29/16 07:11 96.7 F L 14 107/71 Intake and Output 10/28/16 10/29/16 10/29/16 22:59 06:59 14:59 Other: Weight 107.501 kg Results Result Diagrams: 10/29/16 07:35 Abnormal Lab Results - Last 24 Hours (Table) 10/29/16 Range/Units 07:35 WBC 14.3 H (4.0-11.0) k/uL Neutrophils # 10.3 H (1.3-7.7) k/uL
--- NOTE | 2016-10-29 14:50 | P.PROBDLV ---
Vaginal Delivery Note - . Vaginal Delivery Note: Progressed complete and pushing with spontaneous vaginal delivery of a viable male over an intact perineum. Falling deliver the head a nuchal cord 1 was noted and easily reduced. Interim posterior shoulders were then delivered without difficulty baby was delivered from right occiput anterior position. Once baby was delivered mouth nares were bulb suctioned anesthesia was present for delivery but was not needed. Baby was then placed on mother's abdomen where the umbilical cord was clamped cut usual fashion an spontaneous respiration and cry were noted. The umbilical cord was allowed to pulsate for approximately 30 seconds before cutting. Nursery personnel was then present to assume care. Placenta was then delivered intact and Pitocin was added to the IV. scores were 9 and 9 at one and 5 minutes respectively weight is currently pending. Both mother and baby currently appear stable.
--- NOTE | 2016-10-30 08:38 | P.DS ---
Providers Date of admission: 10/29/16 07:10 Expected date of discharge: 10/30/16 Attending physician: Tess Ray Primary care physician: Other is doing very well day 1. She is involuting, voiding, and she is tolerating her diet. She voices no complaints. Vital signs are stable and afebrile. Heart regular, lungs clear, extremities without pain. Abdomen is soft uterus is firm lochia is reported be light. Assessment day 1. Plan discharged home follow the in 6 weeks. Discharge instructions were thoroughly reviewed and all questions are answered for her prior to discharge. Plan - Discharge Summary Follow up Appointment(s)/Referral(s): Mac Schilling DO [Doctor of Osteopathic Medicine] - 1 Week Activity/Diet/Wound Care/Special Instructions: Lifting, limit stairs and driving, and pelvic rest. If any high temperatures, heavy bleeding, or severe pain call my office Discharge Disposition: HOME SELF-CARE
[2016-10-30] MEDS: SENNOSIDES-DOCUSATE SODIUM 1 EACH TAB PO SCH ×2 (10:13→10:14)
[2016-10-30 17:05] VITALS: PULSE 82; RESP 18; TEMP 97.2
[2016-10-31 08:01] VITALS: BP 128/70
--- NOTE | 2016-10-31 08:01 | P.MSEPDOC ---
Presenting Problems - Arrival Data Date of Arrival on Unit: 10/29/16 Time of Arrival on Unit: 07:09 Mode of Transport: Ambulatory - Complaint OB-Reason for Admission/Chief Complaint: Possible Onset of Labor Medical History - Information : 1 Para: 0 Term: 0 : 0 Abortions: Spontaneous or Elective: 0 Number of Living Children: 0 - Gestational Age Expected Date of Delivery: 11/07/16 Gestational Age by RAYNE (wks/days): 39 Weeks and 0 Days Review of Systems - Review of Systems Constitutional: No problems Breast: No problems ENT: No problems Cardiovascular: No problems Respiratory: No problems Gastrointestinal: No problems Genitourinary: No problems Musculoskeletal: No problems Neurological: No problems Skin: No problems Vital Signs - Temperature Temperature: 97.2 F Temperature Source: Oral - Pulse Right Sitting Brachial Pulse Rate: 82 Pulse Assessment Method: Automatic Cuff - Respirations Respiratory Rate: 18 Oxygen Delivery Method: Room Air O2 Sat by Pulse Oximetry: 98 - Blood Pressure Right Arm Sitting Blood Pressure: 128/70 Blood Pressure Mean: 89 Blood Pressure Source: Automatic Cuff Left Arm Blood Pressure: 123/79 Blood Pressure Mean: 93 Blood Pressure Source: Automatic Cuff Medical Screen Scoring (Pre) - Cervical Exam Dilation: 1-3 cm = 1 Effacement: More than 50% = 2 Membranes: Intact - Uterine Contractions Frequency: > or = 36 weeks =2 Duration: > 40 seconds = 2 Intensity: Contraction palpated strong = 1 - Maternal Vital Signs Maternal Temperature: N/A Maternal Blood Pressure: N/A Signs of Preeclampsia: N/A Maternal Respirations: N/A - Maternal Trauma Maternal Trauma: N/A - Assessment Baseline FHR: 130 Heart Rate - NICHD Category: Category I (Normal) = 0 NST: Reactive Position: N/A Station: N/A - Total Score Total Score (Pre): 8 - Level of Risk Level of Risk: Medium (6-9) Physician Notification (Pre) - Physician Notified Physician Notified Date: 10/29/16 Physician Notified Time: 07:16 Physician/Practitioner Notifed:: dr biggs Spoke With: dr biggs New Order Received: Yes Disposition - Disposition OB Disposition: Admit, LDRP Suite Discharge Date: 10/30/16 Discharge Time: 18:20 I agree with the RN Medical Screening Exam: Yes Risk & Benefit of care provided described in d/c instruction: Yes Diagnosis: ENCOUNTER FOR FULL-TERM UNCOMPLICATED DELIVERY
== END 2016-10-30 18:20 | disposition home or self-care (01) | DRG 775 ==
LOC: FBPOP 06:52 → 4FBP 07:10
PROVIDERS: ADMIT Obstetrics & Gynecology; ATTEND Obstetrics & Gynecology
PROC: 10E0XZZ Delivery of Products of Conception, External Approach (ICD-10-PCS; principal; 2016-10-29)
DX: O69.81X0 Labor and delivery complicated by cord around neck, without compression, not applicable or unspecified (principal); O99.344 Other mental disorders complicating childbirth; F32.9 Major depressive disorder, single episode, unspecified; Z37.0 Single live birth; O77.0 Labor and delivery complicated by meconium in amniotic fluid; F41.9 Anxiety disorder, unspecified; Z3A.38 38 weeks gestation of pregnancy; Z82.49 Family history of ischemic heart disease and other diseases of the circulatory system; Z83.3 Family history of diabetes mellitus
CPT/HCPCS: 59025; 85025; 88307; 90707; 99213

== ENCOUNTER → 2017-11-01 | Outpatient (CLI) | payer BC, OTHER ==
[2017-11-01 13:23] LABS: HCT 34.6 % (34.0-46.0); HGB 11.3 gm/dL (11.4-16.0); MCH 29.3 pg (25.0-35.0); MCHC 32.6 g/dL (31.0-37.0); MCV 90.1 fL (80.0-100.0); Mean Platelet Volume 7.5; Platelet Count 255 k/uL (150-450); RBC 3.84 m/uL (3.80-5.40); RDW 13.9 % (11.5-15.5); WBC 11.7 k/uL (4.0-11.0)
== END | disposition home or self-care (01) ==
LOC: LABWHC1 11:56
PROVIDERS: ATTEND Obstetrics & Gynecology
DX: Z34.83 Encounter for supervision of other normal pregnancy, third trimester (principal); Z3A.00 Weeks of gestation of pregnancy not specified
CPT/HCPCS: 36415; 82950; 85027

== ENCOUNTER → 2017-11-06 | Outpatient (CLI) | payer BC, OTHER ==
[2017-11-06 12:50] LABS: Glucose 3 Hour, Gest 121 mg/dL
== END | disposition home or self-care (01) ==
LOC: LABWHC1 08:46
PROVIDERS: ATTEND Obstetrics & Gynecology
DX: O99.810 Abnormal glucose complicating pregnancy (principal); Z3A.00 Weeks of gestation of pregnancy not specified
CPT/HCPCS: 36415; 82951; 82952

== ENCOUNTER 2018-01-13 09:42 | Inpatient (IN) | payer BC, OTHER ==
[2018-01-13] MEDS ORDERED: AMPICILLIN 2,000 MG in SODIUM CHLORIDE 0.9% 100 ML IVPB STA (10:09)
[2018-01-13] MEDS ORDERED: TERBUTALINE 1 MG/ML VIAL SQ PRN (10:09)
[2018-01-13] MEDS ORDERED: LIDOCAINE 0.5% (PF) 5 MG/ML (50 ML SDV) SQ PRN (10:09)
[2018-01-13] MEDS ORDERED: OXYTOCIN 10 UNIT/ML 1 ML VIAL IM PRN (10:09)
[2018-01-13] MEDS ORDERED: METHYLERGONOVINE 0.2 MG/ML 1 ML AMP IM PRN (10:09)
[2018-01-13] MEDS ORDERED: CARBOPROST TROMETHAMINE 250 MCG/ML 1 ML AMP IM PRN (10:09)
[2018-01-13 10:30] LABS: Basophils % (A) 0 %; Eosinophils # (A) 0.1 k/uL (0-0.7); Eosinophils % (A) 1 %; HCT 35.5 % (34.0-46.0); HGB 11.5 gm/dL (11.4-16.0); Lymphocytes # (A) 2.4 k/uL (1.0-4.8); Lymphocytes % (A) 23 %; MCH 27.6 pg (25.0-35.0); MCHC 32.4 g/dL (31.0-37.0); MCV 85.4 fL (80.0-100.0); Mean Platelet Volume 7.9; Monocytes # (A) 0.7 k/uL (0-1.0); Monocytes % (A) 7 %; Neutrophils % (A) 67 %; Platelet Count 321 k/uL (150-450); RBC 4.16 m/uL (3.80-5.40); RDW 14.3 % (11.5-15.5); WBC 10.5 k/uL (3.8-10.6)
[2018-01-13] MEDS: LACTATED RINGERS 1,000 ML IV SCH ×2 (10:32→23:56)
[2018-01-13] MEDS ORDERED: fentaNYL (PF) 50 MCG/ML 5 ML AMP ONE (10:59)
[2018-01-13] MEDS ORDERED: SODIUM CHLORIDE 0.9% 100 ML BAG ONE (10:59)
[2018-01-13] MEDS ORDERED: ROPIVACAINE 5MG/ML 20ML VIAL ONE (10:59)
[2018-01-13 12:06] VITALS: BMI 38.0
[2018-01-13 12:13] LABS: Amphetamine Screen,Urine Not Detected (NotDetected); Barbiturate Screen,Urine Not Detected (NotDetected); Benzodiazepines Screen,Urine Not Detected (NotDetected); Cocaine Screen,Urine Not Detected (NotDetected); Methadone Screen, Urine Not Detected (NotDetected); Opiate Screen,Urine Not Detected (NotDetected); Oxycodone Screen, Urine Not Detected (NotDetected); Phencyclidine Screen,Urine Not Detected (NotDetected); Tricyclic Antidepressant,Urine Not Detected (NotDetected); Urn Cannabinoid Scrn Detected (NotDetected)
[2018-01-13] MEDS: AMPICILLIN 1,000 MG in SODIUM CHLORIDE 0.9% 50 ML IVPB SCH ×2 (14:17→18:16)
--- NOTE | 2018-01-13 18:38 | P.HPOB ---
History of Present Illness H&P Date: 01/13/18 Chief Complaint: Labor 22-year-old presented at 40 weeks and 3 days in labor. Her cervix was 6 cm dilated, 80% effaced, and -2 station. She was true irregularly about every 2-5 minutes. heart tones 130-135 with moderate variability and reactive. Review of Systems All systems: negative Constitutional: Denies chills, Denies fever Eyes: denies blurred vision, denies pain Ears, nose, mouth and throat: Denies headache, Denies sore throat Cardiovascular: Denies chest pain, Denies shortness of breath Respiratory: Denies cough Gastrointestinal: Denies abdominal pain, Denies diarrhea, Denies nausea, Denies vomiting Genitourinary: Denies dysuria, Denies hematuria Musculoskeletal: Denies myalgias Integumentary: Denies pruritus, Denies rash Neurological: Denies numbness, Denies weakness Psychiatric: Denies anxiety, Denies depression Endocrine: Denies fatigue, Denies weight change Past Medical History Past Medical History: No Reported History Additional Past Medical History / Comment(s): Obstetric history: She has had one previous vaginal delivery. This is her second . She's had care with Dr. Horton. Blood type is A+, antibodies negative, rubella nonimmune, hepatitis B surface antigen negative, GBS positive, HIV nonreactive. History of Any Multi-Drug Resistant Organisms: None Reported Past Surgical History: No Surgical Hx Reported Past Anesthesia/Blood Transfusion Reactions: No Reported Reaction Past Psychological History: Anxiety, Bipolar, Depression Smoking Status: Never smoker Past Alcohol Use History: None Reported, Occasional Past Drug Use History: Marijuana - Past Family History Mother Family Medical History: Diabetes Mellitus, Hypertension Medications and Allergies Home Medications Medication Instructions Recorded Confirmed Type Pnv No.95/Ferrous Fum/Folic AC 1 tablet DAILY 01/13/18 01/13/18 History [ Multivitamin Tablet] Allergies Allergy/AdvReac Type Severity Reaction Status Date / Time No Known Allergies Allergy Verified 10/18/16 23:23 Exam Osteopathic Statement: *. No significant issues noted on an osteopathic structural exam other than those noted in the History and Physical/Consult. Vital Signs Temp Pulse Resp BP Pulse Ox 01/13/18 09:43 97.6 F 95 18 130/72 99 Intake and Output 01/13/18 01/13/18 01/13/18 06:59 14:59 22:59 Output Total 250 Balance -250 Output: Urine 250 Straight 250 Other: Weight 113.398 kg Heart: Regular rate and rhythm Lungs: Clear to auscultation bilaterally Abdomen: Soft, nontender Extremities: Negative Homans sign Results Result Diagrams: 01/13/18 10:05 Abnormal Lab Results - Last 24 Hours (Table) 01/13/18 Range/Units 11:59 U Marijuana (THC) Screen Detected H (NotDetected) Assessment and Plan (1) Normal labor Current Visit: Yes Status: Acute Code(s): O80 - ENCOUNTER FOR FULL-TERM UNCOMPLICATED DELIVERY; Z37.9 - OUTCOME OF DELIVERY, UNSPECIFIED SNOMED Code(s ): 07712266 Plan: 1. Admit to family place 2. Epidural for pain control 3. Ampicillin for GBS prophylaxis
[2018-01-13] MEDS ORDERED: ZOLPIDEM 5 MG TAB PO PRN (18:40)
[2018-01-13] MEDS ORDERED: diphenhydrAMINE 25 MG CAP PO PRN (18:40)
[2018-01-13] MEDS ORDERED: SIMETHICONE 80 MG CHEWABLE PO PRN (18:40)
[2018-01-13] MEDS ORDERED: ACETAMINOPHEN TAB 325 MG TAB PO PRN (18:40)
[2018-01-13] MEDS ORDERED: BENZOCAINE/MENTHOL SPRAY 1 GM/SPRAY AEROSOL TOPICAL PRN (18:40)
[2018-01-13] MEDS ORDERED: LANOLIN CREAM 5 GM TUBE TOPICAL PRN (18:40)
[2018-01-13] MEDS ORDERED: diphenhydrAMINE 50 MG CAP PO PRN (18:40)
[2018-01-13] MEDS ORDERED: HYDROCORTISONE 2.5% RECTAL CREAM 30 GM TUBE RECTAL PRN (18:40)
[2018-01-13] MEDS ORDERED: WITCH HAZEL 1 EACH MED..PAD TOPICAL PRN (18:40)
[2018-01-13] MEDS ORDERED: diphenhydrAMINE 50 MG/ML 1 ML VIAL IVP PRN ×2 (18:40)
--- NOTE | 2018-01-13 18:40 | P.PROBDLV ---
Vaginal Delivery Note - . Vaginal Delivery Note: 22-year-old presented at 40 weeks and 3 days in labor. Her cervix was 6 cm dilated, 80% effaced, and -2 station. She was true irregularly about every 2-5 minutes. heart tones 130-135 with moderate variability and reactive. Ampicillin was started for GBS prophylaxis. When she was uncomfortable she did get an epidural. When the IV antibiotics had been in for 4 hours, at 1456, amniotomy was performed and thick meconium fluid was seen. Patient progressed to complete at 1821. She pushed, and delivered a viable female over intact perineum under epidural anesthesia at 1828. Head delivered OA, anterior shoulder delivered gentle downward guidance followed by posterior shoulder and rest of body. Nose and mouth bulb suctioned, cord clamped and cut, placed mother's abdomen. Apgars 8, 9, weight 9 pounds 1.3 ounces. Placenta delivered spontaneously, intact with three-vessel cord at 1832. Vagina, cervix, and perineum were inspected. No lacerations noted. Estimated blood loss 150 mL. Mother and baby in stable condition.
[2018-01-13] MEDS ORDERED: OXYTOCIN 20 UNITS/1000 ML NS 1,000 ML IV SCH (18:45)
[2018-01-13] MEDS: IBUPROFEN 600 MG TAB PO PRN (20:16)
[2018-01-13] MEDS: SENNOSIDES-DOCUSATE SODIUM 1 EACH TAB PO SCH ×2 (20:19→22:40)
[2018-01-14] MEDS: IBUPROFEN 600 MG TAB PO PRN ×3 (04:09→16:34)
[2018-01-14] MEDS: SENNOSIDES-DOCUSATE SODIUM 1 EACH TAB PO SCH (07:42)
--- NOTE | 2018-01-14 08:16 | P.DS ---
Providers Date of admission: 01/13/18 09:48 Expected date of discharge: 01/14/18 Attending physician: Mac Schilling Primary care physician: Stated None Hospital Course: Dona is doing very well day 1. She is ambulating, voiding, and she is tolerating her diet. She voices no complaints and requests discharged home today. Prescription for Motrin was provided. Discharge instructions thoroughly reviewed. She will follow up with me in 6 weeks. Otherwise her vital signs are stable and afebrile. Heart regular, lungs clear, extremities are without pain. Abdomen soft uterus is firm and lochia is reported be light. Assessment day 1. Plan discharged to home follow up in 6 weeks. Patient Condition at Discharge: Good Plan - Discharge Summary New Discharge Prescriptions: New Ibuprofen [Motrin] 600 mg PO Q6HR PRN #30 tab PRN Reason: Pain No Action Pnv No.95/Ferrous Fum/Folic AC [ Multivitamin Tablet] 1 tablet DAILY Discharge Medication List Pnv No.95/Ferrous Fum/Folic AC [ Multivitamin Tablet] 1 tablet DAILY [History] Ibuprofen [Motrin] 600 mg PO Q6HR PRN #30 tab 01/14/18 [Rx] Follow up Appointment(s)/Referral(s): Mac Schilling DO [Doctor of Osteopathic Medicine] - 6 Weeks Activity/Diet/Wound Care/Special Instructions: No heavy lifting, limit stairs and driving, and pelvic rest. If any high temperatures, heavy bleeding, or severe pain call my office Discharge Disposition: HOME SELF-CARE
[2018-01-14 09:22] VITALS: RESP 18
[2018-01-14 17:50] VITALS: BP 142/77; PULSE 91; TEMP 98.1
== END 2018-01-14 20:51 | disposition home or self-care (01) | DRG 807 ==
LOC: FBPOP 09:42 → 4FBP 09:48
PROVIDERS: ADMIT Obstetrics & Gynecology; ATTEND Obstetrics & Gynecology
PROC: 10907ZC Drainage of Amniotic Fluid, Therapeutic from Products of Conception, Via Natural or Artificial Opening (ICD-10-PCS; principal; 2018-01-13)
PROC: 10E0XZZ Delivery of Products of Conception, External Approach (ICD-10-PCS; principal; 2018-01-13)
DX: O99.824 Streptococcus B carrier state complicating childbirth (principal); Z37.0 Single live birth; Z3A.40 40 weeks gestation of pregnancy; Z82.49 Family history of ischemic heart disease and other diseases of the circulatory system; Z83.3 Family history of diabetes mellitus
CPT/HCPCS: 80306; 85025; 86762; 86780; 86850; 86900; 86901; 87340

== ENCOUNTER 2022-03-23 06:56 | Emergency (ER) | payer BC, OTHER ==
[2022-03-23 08:41] LABS: Amorphous Sediment,Urine Occasional /hpf; Appearance,Urine Cloudy (Clear); Bilirubin,Urine Negative (Negative); Blood,Urine Trace (Negative); Color,Urine Yellow; Glucose,Urine (UA) Negative (Negative); Ketones,Urine Negative (Negative); Leukocyte Esterase,Urine Moderate (Negative); Mucus,Urine Few /hpf; Nitrite,Urine Negative (Negative); PH, Urine 5.5 (5.0-8.0); Protein,Urine Negative (Negative); RBC,Urine 2 /hpf (0-5); Specific Gravity,Urine 1.025 (1.001-1.035); Squamous Epithelial Cell,Urine 18 /hpf (0-4); Urobilinogen,Urine <2.0 mg/dL (<2.0); WBC,Urine 6 /hpf (0-5)
--- NOTE | 2022-03-23 08:54 | ED ---
Abdominal Pain HPI - General Chief Complaint: Abdominal Pain Stated Complaint: Female Time Seen by Provider: 03/23/22 07:10 Source: patient Mode of arrival: ambulatory Limitations: no limitations - History of Present Illness Initial Comments: 26-year-old female who presents to the emergency department reporting suprapubic pain. States it's been going on for the past 3 days. Does have increased frequency of urination. Has mild dysuria. Denies hematuria. No fevers. No flank pain. Admits to intermittent constipation with diarrhea. No black or bloody stools. Also has had some increase in vaginal discharge. States that she has no concern for sexually transmitted infections or as she is not currently sexually active. She denies any abnormal vaginal bleeding. Not currently taking any medications for her symptoms. No other alleviating, Perceptin or modifying factors - Related Data Previous Rx's Medication Instructions Recorded Sertraline [Zoloft] 100 mg PO DAILY 30 Days tab 04/06/21 lamoTRIgine [LaMICtal] 25 mg PO HS 30 Days tab 04/06/21 traZODone HCL [Desyrel] 100 mg PO HS PRN 30 Days tab 04/06/21 metroNIDAZOLE [Flagyl] 500 mg PO BID #14 tab 03/23/22 Allergies Allergy/AdvReac Type Severity Reaction Status Date / Time No Known Allergies Allergy Verified 04/04/21 03:42 Review of Systems ROS Statement: Those systems with pertinent positive or pertinent negative responses have been documented in the HPI. ROS Other: All systems not noted in ROS Statement are negative. Past Medical History Past Medical History: No Reported History Additional Past Medical History / Comment(s): Obstetric history: She has had one previous vaginal delivery. This is her second . She's had care with Dr. Horton. Blood type is A+, antibodies negative, rubella nonimmune, hepatitis B surface antigen negative, GBS positive, HIV nonreactive. History of Any Multi-Drug Resistant Organisms: None Reported Past Surgical History: No Surgical Hx Reported Past Anesthesia/Blood Transfusion Reactions: No Reported Reaction Past Psychological History: Anxiety, Bipolar, Depression Smoking Status: Vaper Past Alcohol Use History: None Reported, Occasional Past Drug Use History: Marijuana - Past Family History Mother Family Medical History: Diabetes Mellitus, Hypertension General Exam Limitations: no limitations General appearance: alert, in no apparent distress Head exam: Present: atraumatic, normocephalic, normal inspection Eye exam: Present: normal appearance, PERRL, EOMI. Absent: scleral icterus, conjunctival injection, periorbital swelling ENT exam: Present: normal exam, mucous membranes moist Neck exam: Present: normal inspection. Absent: tenderness, meningismus, lymphadenopathy Respiratory exam: Present: normal lung sounds bilaterally. Absent: respiratory distress, wheezes, rales, rhonchi, stridor Cardiovascular Exam: Present: regular rate, normal rhythm, normal heart sounds. Absent: systolic murmur, diastolic murmur, rubs, gallop, clicks GI/Abdominal exam: Present: soft, tenderness (suprapubic), normal bowel sounds. Absent: distended, guarding, rebound, rigid External exam: Present: normal external exam Speculum exam: Present: cervical discharge Extremities exam: Present: normal inspection, full ROM, normal capillary refill. Absent: tenderness, pedal edema, joint swelling, calf tenderness Back exam: Present: normal inspection Neurological exam: Present: alert, oriented X3, CN II-XII intact Psychiatric exam: Present: normal affect, normal mood Skin exam: Present: warm, dry, intact, normal color. Absent: rash Course Vital Signs 03/23/22 03/23/22 07:09 09:35 Temperature 98.5 F 98.1 F Pulse Rate 86 78 Respiratory 12 16 Rate Blood Pressure 150/98 128/87 O2 Sat by Pulse 99 98 Oximetry Medical Decision Making - Medical Decision Making Was pt. sent in by a medical professional or institution (, PA, WAREHOUSE MAN, urgent care, hospital, or custodial...) When possible be specific @ -[No] Did you speak to anyone other than the patient for history (EMS, parent, family, police, friend...)? What history was obtained from this source @ -[No] Did you review nursing and triage notes (agree or disagree)? Why? @ -[I reviewed and agree with nursing and triage notes] Were old charts reviewed (outside hosp., previous admission, EMS record, old EKG, old radiological studies, urgent care reports/EKG's, custodial records)? Report findings @ -[No old charts were reviewed] Differential Diagnosis (chest pain, altered mental status, abdominal pain women, abdominal pain men, vaginal bleeding, weakness, fever, dyspnea, syncope, headac he, dizziness, GI bleed, back pain, seizure, CVA, palpatations, mental health)? vaginal candidiasis, bv, sti, , uti, abnormal vaginal bleeding EKG interpreted by me (3pts min.). no X-rays interpreted by me (1pt min.). @ -[None done] CT interpreted by me (1pt min.). @ -[None done] U/S interpreted by me (1pt. min.). @ -[None done] What testing was considered but not performed or refused? (CT, X-rays, U/S, labs)? Why? @ -[None] What meds were considered but not given or refused? Why? @ -[None] Did you discuss the management of the patient with other professionals (professionals i.e. , PA, WAREHOUSE MAN, lab, RT, psych nurse, 7th grade social studies teacher, patient support associate, teacher, digital marketing officer, cyanide case hardener)? Give summary @ -[No] Was smoking cessation discussed for >3mins.? @ -[No] Was critical care preformed (if so, how long)? @ -[No] Were there social determinants of health that impacted care today? How? (Homelessness, low income, unemployed, alcoholism, drug addiction, transportation, low edu. Level, literacy, decrease access to med. care, shelter, rehab)? @ -[No] Was there de-escalation of care discussed even if they declined (Discuss DNR or withdrawal of care, Hospice)? DNR status @ -[No] What co-morbidities impacted this encounter? (DM, HTN, Smoking, COPD, CAD, Cancer, CVA, ARF, Chemo, Hep., AIDS, mental health diagnosis, sleep apnea, morbid obesity)? @ -[None] Was patient admitted / discharged? Hospital course, mention meds given and route, prescriptions, significant lab abnormalities, going to OR and other pertinent info. On arrival patient was placed into room 19. Her history and physical exam was performed. Pelvic exam is performed which does demonstrate some thin, watery discharge. Sample is taken for Trichomonas and culture. No bleeding. Urinalysis demonstrates no acute UTI at this time however will be sent for culture. I did discuss treatment options at this time. Patient adamant that she does not have sexy transmitted infection therefore is refusing any treatment for these disease processes. He is agreeable with treatment for BV. She is given Flagyl the emergency room and will be discharged home in 7 days with Flagyl. Instructed not to drink with taking the medications. She is to follow- up with her primary care doctor for reevaluation of her symptoms return for any new or worsening symptoms. Patient agreeable to the plan was discharged home in stable condition Undiagnosed new problem with uncertain prognosis? yes Drug Therapy requiring intensive monitoring for toxicity (Heparin, Nitro, Insulin, Cardizem)? @ -[No] Were any procedures done? pelvic exam Diagnosis/symptom? acute pelvic pain, acute vaginosis Acute, or Chronic, or Acute on Chronic? acute Uncomplicated (without systemic symptoms) or Complicated (systemic symptoms)? uncomplicated Side effects of treatment? vomiting when taken with alcohol Exacerbation, Progression, or Severe Exacerbation? @ -[No] Poses a threat to life or bodily function? How? (Chest pain, [place], [place], pneumonia, PE, COPD, DKA, ARF, appy, cholecystitis, CVA, Diverticulitis, Homicidal, Suicidal, threat to staff... and all critical care pts) @ -[No] - Lab Data Lab Results 03/23/22 03/23/22 03/23/22 Range/Units 07:50 07:50 07:50 Urine Color Yellow Urine Appearance Cloudy H (Clear) Urine pH 5.5 (5.0-8.0) Ur Specific [place] 1.025 (1.001-1.035) Urine Protein Negative (Negative) Urine Glucose (UA) Negative (Negative) Urine Ketones Negative (Negative) Urine Blood Trace H (Negative) Urine Nitrite Negative (Negative) Urine Bilirubin Negative (Negative) Urine Urobilinogen <2.0 (<2.0) mg/dL Ur Leukocyte Esterase Moderate H (Negative) Urine RBC 2 (0-5) /hpf Urine WBC 6 H (0-5) /hpf Ur Squamous Epith Cells 18 H (0-4) /hpf Amorphous Sediment Occasional H (None) /hpf Urine Mucus Few H (None) /hpf Urine HCG, Qual Not Detected (Not Detectd) Trichomonas Ag (Rapid) Negative (Negative) Disposition Clinical Impression: Vaginosis, Suprapubic pain Disposition: HOME SELF-CARE Condition: Stable Instructions (If sedation given, give patient instructions): Pelvic Pain (ED) Additional Instructions: Take medications as directed to see if you have improvement in your symptoms. Follow-up with your doctor. We will call you in 2 days if your urine culture comes back positive. Return for any new or worsening symptoms Prescriptions: metroNIDAZOLE [Flagyl] 500 mg PO BID #14 tab Is patient prescribed a controlled substance at d/c from ED?: No Referrals: Leana Flanagan MD [Primary Care Provider] - 1-2 days Time of Disposition: 09:22
[2022-03-23] MEDS ORDERED: metroNIDAZOLE 500 MG TAB PO STA (09:05)
[2022-03-23 10:01] VITALS: BP 128/87; PULSE 78; RESP 16; TEMP 98.1
== END 2022-03-23 09:35 | disposition home or self-care (01) ==
LOC: EC 06:56
DX: N39.0 Urinary tract infection, site not specified (principal); N76.0 Acute vaginitis; F41.9 Anxiety disorder, unspecified; F31.9 Bipolar disorder, unspecified; F17.290 Nicotine dependence, other tobacco product, uncomplicated; F12.90 Cannabis use, unspecified, uncomplicated
CPT/HCPCS: 81001; 81025; 87070; 87808; 99284

== ENCOUNTER 2022-10-26 18:06 | Emergency (ER) | payer BC, OTHER ==
[2022-10-26 18:13] VITALS: TEMP 99.2
[2022-10-26 20:20] LABS: Appearance,Urine Cloudy (Clear); Bilirubin,Urine Negative (Negative); Blood,Urine Negative (Negative); Color,Urine Light Yellow; Glucose,Urine (UA) Negative (Negative); Ketones,Urine Negative (Negative); Leukocyte Esterase,Urine Small (Negative); Mucus,Urine Occasional /hpf; Nitrite,Urine Negative (Negative); Protein,Urine Negative (Negative); RBC,Urine 1 /hpf (0-5); Specific Gravity,Urine 1.025 (1.001-1.035); Squamous Epithelial Cell,Urine 7 /hpf (0-4); Urobilinogen,Urine <2.0 mg/dL (<2.0); WBC,Urine 3 /hpf (0-5)
--- NOTE | 2022-10-26 20:36 | ED ---
General Adult HPI - General Chief complaint: Abdominal Pain Stated complaint: Abd Pain Time Seen by Provider: 10/26/22 18:35 Source: patient, RN notes reviewed Mode of arrival: ambulatory Limitations: no limitations - History of Present Illness Initial comments: 26-year-old -German female with no significant past medical history presents to the emergency department with a chief complaint of possible vaginal foreign body. Patient reports that she is possibly a condom retained in her vagina. She denies any known fevers, chills, dysuria, hematuria, flank pain, vomiting. She does report having accompanying nausea. She is not concerned for any sexually transmitted diseases at the time of evaluation. She denies any vaginal bleeding, vaginal cramping, low back pain, abnormal discharge. Patient's last menstrual period 09/25/2022. - Related Data Previous Rx's Medication Instructions Recorded Sertraline [Zoloft] 100 mg PO DAILY 30 Days tab 04/06/21 lamoTRIgine [LaMICtal] 25 mg PO HS 30 Days tab 04/06/21 traZODone HCL [Desyrel] 100 mg PO HS PRN 30 Days tab 04/06/21 metroNIDAZOLE [Flagyl] 500 mg PO BID #14 tab 03/23/22 Multivit No.40/Iron/Folat1/Dha 1 each PO DAILY #30 capsule 10/26/22 [Prenate Essential Softgel] Allergies Allergy/AdvReac Type Severity Reaction Status Date / Time No Known Allergies Allergy Verified 10/26/22 18:13 Review of Systems ROS Statement: Those systems with pertinent positive or pertinent negative responses have been documented in the HPI. ROS Other: All systems not noted in ROS Statement are negative. Past Medical History Past Medical History: No Reported History Additional Past Medical History / Comment(s): Obstetric history: She has had one previous vaginal delivery. This is her second . She's had care with Dr. Horton. Blood type is A+, antibodies negative, rubella nonimmune, hepatitis B surface antigen negative, GBS positive, HIV nonreactive. History of Any Multi-Drug Resistant Organisms: None Reported Past Surgical History: No Surgical Hx Reported Past Anesthesia/Blood Transfusion Reactions: No Reported Reaction Past Psychological History: Anxiety, Bipolar, Depression Smoking Status: Vaper Past Alcohol Use History: None Reported, Occasional Past Drug Use History: Marijuana - Past Family History Mother Family Medical History: Diabetes Mellitus, Hypertension General Exam - General Exam Comments Initial Comments: General: Alert, in no acute distress Head: atraumatic normocephalic. Eyes PERRL, EOMI intact, mucous membranes moist Respiratory: Lungs clear to auscultation bilaterally Cardiovascular: Rate regular rate and rhythm Abdominal: Soft without guarding or rebound Extremities: Normal inspection with full range of motion and normal capillary refill Neuroogic: alert and oriented 3, CN II-XII intact, able to ambulate with steady gait Skin: warm dry and intact with normal color : Normal exam without rashes, lesions. Cervical os is visualized and closed. Physiologic leukorrhea noted. No adnexal tenderness. Pelvic exam performed with Sharda sheehan RN present Limitations: no limitations Course Vital Signs 10/26/22 10/26/22 18:09 20:46 Temperature 99.2 F Pulse Rate 91 69 Respiratory 20 19 Rate Blood Pressure 145/89 132/77 O2 Sat by Pulse 99 100 Oximetry Medical Decision Making - Medical Decision Making Was pt. sent in by a medical professional or institution (, PA, CAGE UNLOADER, urgent care, hospital, or jail...) When possible be specific @ -[No] Did you speak to anyone other than the patient for history (EMS, parent, family, police, friend...)? What history was obtained from this source @ -[No] Did you review nursing and triage notes (agree or disagree)? Why? @ -[I reviewed and agree with nursing and triage notes] Were old charts reviewed (outside hosp., previous admission, EMS record, old EKG, old radiological studies, urgent care reports/EKG's, jail records)? Report findings @ -[No old charts were reviewed] Differential Diagnosis (chest pain, altered mental status, abdominal pain women, abdominal pain men, vaginal bleeding, weakness, fever, dyspnea, syncope, headache, dizziness, GI bleed, back pain, seizure, CVA, palpatations, mental health, musculoskeletal)? @ -[not applicable] EKG interpreted by me (3pts min.). @ -[As above] X-rays interpreted by me (1pt min.). @ -[None done] CT interpreted by me (1pt min.). @ -[None done] U/S interpreted by me (1pt. min.). @ -[None done] What testing was considered but not performed or refused? (CT, X-rays, U/S, labs)? Why? @ -[None] What meds were considered but not given or refused? Why? @ -[None] Did you discuss the management of the patient with other professionals (professionals i.e. , PA, CAGE UNLOADER, lab, RT, psych nurse, social science analyst, candy catcher, teacher, chief wellness officer, case reviewer)? Give summary @ -[No] Was smoking cessation discussed for >3mins.? @ -[No] Was critical care preformed (if so, how long)? @ -[No] Were there social determinants of health that impacted care today? How? (Homelessness, low income, unemployed, alcoholism, drug addiction, transportation, low edu. Level, literacy, decrease access to med. care, retirement, rehab)? @ -[No] Was there de-escalation of care discussed even if they declined (Discuss DNR or withdrawal of care, Hospice)? DNR status @ -[No] What co-morbidities impacted this encounter? (DM, HTN, Smoking, COPD, CAD, Cancer, CVA, ARF, Chemo, Hep., AIDS, mental health diagnosis, sleep apnea, morbid obesity)? @ -[None] Was patient admitted / discharged? Hospital course, mention meds given and route, prescriptions, significant lab abnormalities, going to OR and other pertinent info. @ -Discharged. This is a pleasant 26-year-old female with possible vaginal foreign body. Patient had thorough history and physical exam performed. Physical exam did not reveal any evidence of foreign body retained in the vagina. Pelvic exam chaperoned by Sharda JHON. The office is closed. No adnexal Tenderness. Patient had positive result on the ED. Patient is provided prescription for vitamins. Discharged in stable condition. Return precautions were discussed at length. Patient provided list of WEED INSPECTOR's in the area. JAGDISH Keane who agrees with plan of care Undiagnosed new problem with uncertain prognosis? @ -[No] Drug Therapy requiring intensive monitoring for toxicity (Heparin, Nitro, Insulin, Cardizem)? @ -[No] Were any procedures done? @ -[No] Diagnosis/symptom? @ -Possible Vaginal Foreign Body - Positive test Acute, or Chronic, or Acute on Chronic? @ -Acute Uncomplicated (without systemic symptoms) or Complicated (systemic symptoms)? @ -Uncomplicated Side effects of treatment? @ -[No] Exacerbation, Progression, or Severe Exacerbation? @ -[No] Poses a threat to life or bodily function? How? (Chest pain, USA, [place], pneumonia, PE, COPD, DKA, ARF, appy, cholecystitis, CVA, Diverticulitis, Homicidal, Suicidal, threat to staff... and all critical care pts) @ -Low likelihood - Lab Data Lab Results 10/26/22 10/26/22 10/26/22 Range/Units 20:03 20:03 20:03 Urine Color Light Yellow Urine Appearance Cloudy H (Clear) Urine pH 6.0 (5.0-8.0) Ur Specific [place] 1.025 (1.001-1.035) Urine Protein Negative (Negative) Urine Glucose (UA) Negative (Negative) Urine Ketones Negative (Negative) Urine Blood Negative (Negative) Urine Nitrite Negative (Negative) Urine Bilirubin Negative (Negative) Urine Urobilinogen <2.0 (<2.0) mg/dL Ur Leukocyte Esterase Small H (Negative) Urine RBC 1 (0-5) /hpf Urine WBC 3 (0-5) /hpf Ur Squamous Epith Cells 7 H (0-4) /hpf Urine Mucus Occasional H (None) /hpf Urine HCG, Qual Detected (Not Detectd) Trichomonas Ag (Rapid) Negative (Negative) Disposition Clinical Impression: Positive test, Vaginal foreign body Disposition: HOME SELF-CARE Condition: Stable Instructions (If sedation given, give patient instructions): (ED) Additional Instructions: Please return to the nearest emergency department symptoms worsen or persist Prescriptions: Multivit No.40/Iron/Folat1/Dha [Prenate Essential Softgel] 1 each PO DAILY #30 capsule Is patient prescribed a controlled substance at d/c from ED?: No Referrals: None,Stated [Primary Care Provider] - 1-2 days Ivy Almodovar MD [STAFF PHYSICIAN] - 1-2 days Batool Topete DO [Doctor of Osteopathic Medicine] - 1-2 days Tess Ray DO [Doctor of Osteopathic Medicine] - 1-2 days Time of Disposition: 20:34
[2022-10-26 20:47] VITALS: BP 132/77; PULSE 69; RESP 19
[2022-10-30 14:21] LABS: C. trachomatis,PCR Negative (Negative)
[2022-10-30 14:22] LABS: N. gonorrhoeae,PCR Negative (Negative)
== END 2022-10-26 20:50 | disposition home or self-care (01) ==
LOC: EC 18:06
DX: O99.891 Other specified diseases and conditions complicating pregnancy (principal); T19.2XXA Foreign body in vulva and vagina, initial encounter; O99.330 Smoking (tobacco) complicating pregnancy, unspecified trimester; F17.290 Nicotine dependence, other tobacco product, uncomplicated; O99.320 Drug use complicating pregnancy, unspecified trimester; F12.90 Cannabis use, unspecified, uncomplicated; Z3A.00 Weeks of gestation of pregnancy not specified
CPT/HCPCS: 81001; 81025; 87491; 87591; 87808; 99284

== ENCOUNTER 2022-11-13 12:23 | Emergency (ER) | payer OTHER ==
[2022-11-13 12:51] VITALS: BP 107/72; PULSE 77; RESP 16; TEMP 98
[2022-11-13] MEDS ORDERED: SODIUM CHLORIDE 0.9% 1,000 ML IV ONE (13:38)
--- NOTE | 2022-11-13 13:46 | ED ---
General Adult HPI - General Chief complaint: Abdominal Pain Stated complaint: Abd Pain Time Seen by Provider: 11/13/22 13:12 Source: patient, RN notes reviewed Mode of arrival: ambulatory Limitations: no limitations - History of Present Illness Initial comments: 27-year-old -[place] female who is presents to the emergency department with a chief complaint of vaginal bleeding. Patient reports that she had a D&C performed at an outpatient clinic in [place] on Saturday11/09/2022. She reports she had light bleeding over the weekend however today she has had increased vaginal bleeding and passing clots. She has not followed up with her primary FERMENTER or PCP. She denies any dizziness, lightheadedness, fevers, chills, lower abdominal pain. - Related Data Previous Rx's Medication Instructions Recorded Sertraline [Zoloft] 100 mg PO DAILY 30 Days tab 04/06/21 lamoTRIgine [LaMICtal] 25 mg PO HS 30 Days tab 04/06/21 traZODone HCL [Desyrel] 100 mg PO HS PRN 30 Days tab 04/06/21 metroNIDAZOLE [Flagyl] 500 mg PO BID #14 tab 03/23/22 Multivit No.40/Iron/Folat1/Dha 1 each PO DAILY #30 capsule 10/26/22 [Prenate Essential Softgel] Allergies Allergy/AdvReac Type Severity Reaction Status Date / Time No Known Allergies Allergy Verified 11/13/22 12:49 Review of Systems ROS Statement: Those systems with pertinent positive or pertinent negative responses have been documented in the HPI. ROS Other: All systems not noted in ROS Statement are negative. Past Medical History Past Medical History: No Reported History Additional Past Medical History / Comment(s): Obstetric history: She has had one previous vaginal delivery. This is her second . She's had care with Dr. Horton. Blood type is A+, antibodies negative, rubella nonimmune, hepatitis B surface antigen negative, GBS positive, HIV nonreactive. History of Any Multi-Drug Resistant Organisms: None Reported Past Surgical History: No Surgical Hx Reported Past Anesthesia/Blood Transfusion Reactions: No Reported Reaction Past Psychological History: Anxiety, Bipolar, Depression Smoking Status: Vaper Past Alcohol Use History: None Reported, Occasional Past Drug Use History: Marijuana - Past Family History Mother Family Medical History: Diabetes Mellitus, Hypertension General Exam - General Exam Comments Initial Comments: General: Alert, in no acute distress Head: atraumatic normocephalic. Eyes PERRL, EOMI intact, mucous membranes moist Respiratory: Lungs clear to auscultation bilaterally Cardiovascular: Heart rate regular rate and rhythm Abdominal: Soft without guarding or rebound Extremities: Normal inspection with full range of motion and normal capillary refill Neuroogic: alert and oriented 3, CN II-XII intact, able to ambulate with steady gait Skin: warm dry and intact with normal color : external exam is without any rashes, lesions, erythema. Vaginal canal with a few dark red clots. Cervical os is visualized and is closed. There is no cervical motion tenderness for abnormal adnexal tenderness. Pelvic exam performed with Jocelynn sheehan RN present. Limitations: no limitations Course Vital Signs 11/13/22 12:49 Temperature 98 F Pulse Rate 77 Respiratory 16 Rate Blood Pressure 107/72 O2 Sat by Pulse 99 Oximetry Medical Decision Making - Medical Decision Making Was pt. sent in by a medical professional or institution (, PA, FOURDRINIER OPERATOR, urgent care, hospital, or intermediate...) When possible be specific @ -[No] Did you speak to anyone other than the patient for history (EMS, parent, family, police, friend...)? What history was obtained from this source @ -[No] Did you review nursing and triage notes (agree or disagree)? Why? @ -[I reviewed and agree with nursing and triage notes] Were old charts reviewed (outside hosp., previous admission, EMS record, old EKG, old radiological studies, urgent care reports/EKG's, intermediate records)? Report findings @ -[No old charts were reviewed] Differential Diagnosis (chest pain, altered mental status, abdominal pain women, abdominal pain men, vaginal bleeding, weakness, fever, dyspnea, syncope, headache, dizziness, GI bleed, back pain, seizure, CVA, palpatations, mental health, musculoskeletal)? @ -[not applicable] EKG interpreted by me (3pts min.). @ -[As above] X-rays interpreted by me (1pt min.). @ -[None done] CT interpreted by me (1pt min.). @ -[None done] U/S interpreted by me (1pt. min.). @ -[None done] What testing was considered but not performed or refused? (CT, X-rays, U/S, labs)? Why? @ -[None] What meds were considered but not given or refused? Why? @ -[None] Did you discuss the management of the patient with other professionals (professionals i.e. , PA, FOURDRINIER OPERATOR, lab, RT, psych nurse, social science professor, real estate executive assistant, teacher, disbursing officer, piano case and bench assembler)? Give summary @ -[No] Was smoking cessation discussed for >3mins.? @ -[No] Was critical care preformed (if so, how long)? @ -[No] Were there social determinants of health that impacted care today? How? (Homelessness, low income, unemployed, alcoholism, drug addiction, transportation, low edu. Level, literacy, decrease access to med. care, [facility], rehab)? @ -[No] Was there de-escalation of care discussed even if they declined (Discuss DNR or withdrawal of care, Hospice)? DNR status @ -[No] What co-morbidities impacted this encounter? (DM, HTN, Smoking, COPD, CAD, Cancer, CVA, ARF, Chemo, Hep., AIDS, mental health diagnosis, sleep apnea, morbid obesity)? @ -[None] Was patient admitted / discharged? Hospital course, mention meds given and route, prescriptions, significant lab abnormalities, going to OR and other pertinent info. @ -Discharge. This is a pleasant 27-year-old -[place] female who presents the emergency department with a chief complaint of vaginal bleeding. Patient had a thorough history and physical exam performed. Physical exam reveals a few large clots. Cervical os was visualized and is closed. No adnexal tenderness. Patient had lab work performed which revealed WBC 9.0, hemoglobin 11.9 sodium 135 potassium 4.2 BUN 12, creatinine 0.50 HCG 1396 Urinalysis reveals large amount of blood I discussed results in detail the patient verbalized understanding all questions were addressed. She is agreeable with the plan for discharge home with recommended close follow-up with FERMENTER. She is provided a list of FERMENTER is an area. Return precautions were discussed at length including worsening vaginal bleeding heavy clots, dizziness or lightheadedness that develop. Case discussed with Dr. Leblanc [facility] who agrees with plan of care Undiagnosed new problem with uncertain prognosis? @ -[No] Drug Therapy requiring intensive monitoring for toxicity (Heparin, Nitro, Insulin, Cardizem)? @ -[No] Were any procedures done? @ -[No] Diagnosis/symptom? @ - Vaginal Bleeding - Hx of Elective Acute, or Chronic, or Acute on Chronic? @ -Acute Uncomplicated (without systemic symptoms) or Complicated (systemic symptoms)? @ -Uncomplicated Side effects of treatment? @ -[No] Exacerbation, Progression, or Severe Exacerbation? @ -[No] Poses a threat to life or bodily function? How? (Chest pain, USA, [place], pneumonia, PE, COPD, DKA, ARF, appy, cholecystitis, CVA, Diverticulitis, Homicidal, Suicidal, threat to staff... and all critical care pts) @ -Low likelihood - Lab Data Result diagrams: 11/13/22 13:51 11/13/22 13:51 Lab Results 11/13/22 11/13/22 11/13/22 Range/Units 13:51 13:51 14:32 WBC 9.0 (3.8-10.6) k/uL RBC 4.10 (3.80-5.40) m/uL Hgb 11.9 (11.4-16.0) gm/dL Hct 37.1 (34.0-46.0) % MCV 90.4 (80.0-100.0) fL MCH 29.1 (25.0-35.0) pg MCHC 32.2 (31.0-37.0) g/dL RDW 14.3 (11.5-15.5) % Plt Count 269 (150-450) k/uL MPV 8.3 Neutrophils % 59 % Lymphocytes % 29 % Monocytes % 8 % Eosinophils % 2 % Basophils % 0 % Neutrophils # 5.2 (1.3-7.7) k/uL Lymphocytes # 2.6 (1.0-4.8) k/uL Monocytes # 0.7 (0-1.0) k/uL Eosinophils # 0.1 (0-0.7) k/uL Basophils # 0.0 (0-0.2) k/uL Sodium 135 L (137-145) mmol/L Potassium 4.2 (3.5-5.1) mmol/L Chloride 106 (98-107) mmol/L Carbon Dioxide 22 (22-30) mmol/L Anion Gap 7 mmol/L BUN 12 (7-17) mg/dL Creatinine 0.50 L (0.52-1.04) mg/dL Est GFR (CKD-EPI)AfAm >90 (>60 ml/min/1.73 sqM) Est GFR (CKD-EPI)NonAf >90 (>60 ml/min/1.73 sqM) Glucose 96 (74-99) mg/dL Calcium 9.1 (8.4-10.2) mg/dL Total Bilirubin 0.4 (0.2-1.3) mg/dL AST 33 (14-36) U/L ALT 34 (4-34) U/L Alkaline Phosphatase 43 (38-126) U/L Total Protein 6.5 (6.3-8.2) g/dL Albumin 3.6 (3.5-5.0) g/dL HCG, Quant 1396.9 mIU/mL Urine Color Light Red Urine Appearance Clear (Clear) Urine pH 5.5 (5.0-8.0) Ur Specific [place] 1.027 (1.001-1.035) Urine Protein 1+ H (Negative) Urine Glucose (UA) Negative (Negative) Urine Ketones Negative (Negative) Urine Blood Large H (Negative) Urine Nitrite Negative (Negative) Urine Bilirubin Negative (Negative) Urine Urobilinogen <2.0 (<2.0) mg/dL Ur Leukocyte Esterase Moderate H (Negative) Urine RBC >182 H (0-5) /hpf Urine WBC 25 H (0-5) /hpf Ur Squamous Epith Cells 2 (0-4) /hpf Calcium Oxalate Crystal Rare H (None) /hpf Amorphous Sediment Rare H (None) /hpf Urine Mucus Rare H (None) /hpf Disposition Clinical Impression: Vaginal bleeding, History of elective Disposition: HOME SELF-CARE Condition: Stable Instructions (If sedation given, give patient instructions): Miscarriage (ED) Additional Instructions: Please return to the nearest emergency department if worsening vaginal bleeding, heavy clots, dizziness, lightheadedness develop Is patient prescribed a controlled substance at d/c from ED?: No Referrals: None,Stated [Primary Care Provider] - 1-2 days Ivy Almodovar MD [STAFF PHYSICIAN] - 1-2 days Julio Alfaro MD [STAFF PHYSICIAN] - 1-2 days Batool Topete DO [Doctor of Osteopathic Medicine] - 1-2 days Forms: PH Area PCPs Time of Disposition: 15:48
[2022-11-13 14:02] LABS: Basophils % (A) 0 %; Eosinophils # (A) 0.1 k/uL (0-0.7); Eosinophils % (A) 2 %; HCT 37.1 % (34.0-46.0); HGB 11.9 gm/dL (11.4-16.0); Lymphocytes # (A) 2.6 k/uL (1.0-4.8); Lymphocytes % (A) 29 %; MCH 29.1 pg (25.0-35.0); MCHC 32.2 g/dL (31.0-37.0); MCV 90.4 fL (80.0-100.0); Mean Platelet Volume 8.3; Monocytes # (A) 0.7 k/uL (0-1.0); Monocytes % (A) 8 %; Neutrophils # (A) 5.2 k/uL (1.3-7.7); Neutrophils % (A) 59 %; Platelet Count 269 k/uL (150-450); RDW 14.3 % (11.5-15.5)
[2022-11-13 14:25] LABS: ALT 34 U/L (4-34); AST 33 U/L (14-36); African American GFR (CKD) >90 (>60 ml/min/1.73 sqM); Albumin 3.6 g/dL (3.5-5.0); Alkaline Phosphatase 43 U/L (38-126); Anion Gap 7 mmol/L; Blood Urea Nitrogen 12 mg/dL (7-17); Calcium 9.1 mg/dL (8.4-10.2); Carbon Dioxide 22 mmol/L (22-30); Chloride 106 mmol/L (98-107); Glucose 96 mg/dL (74-99); Non-African American GFR(CKD) >90 (>60 ml/min/1.73 sqM); Potassium 4.2 mmol/L (3.5-5.1); Sodium 135 mmol/L (137-145); Total Bilirubin 0.4 mg/dL (0.2-1.3); Total Protein 6.5 g/dL (6.3-8.2)
[2022-11-13 14:40] LABS: HCG,Quantitative Serum 1396.9 mIU/mL
[2022-11-13 15:27] LABS: Amorphous Sediment,Urine Rare /hpf; Appearance,Urine Clear (Clear); Bilirubin,Urine Negative (Negative); Blood,Urine Large (Negative); Calcium Oxalate Crystals,Urine Rare /hpf; Color,Urine Light Red; Glucose,Urine (UA) Negative (Negative); Ketones,Urine Negative (Negative); Leukocyte Esterase,Urine Moderate (Negative); Mucus,Urine Rare /hpf; Nitrite,Urine Negative (Negative); PH, Urine 5.5 (5.0-8.0); Protein,Urine 1+ (Negative); RBC,Urine >182 /hpf (0-5); Specific Gravity,Urine 1.027 (1.001-1.035); Squamous Epithelial Cell,Urine 2 /hpf (0-4); Urobilinogen,Urine <2.0 mg/dL (<2.0); WBC,Urine 25 /hpf (0-5)
== END 2022-11-13 18:08 | disposition home or self-care (01) ==
LOC: EC 12:23
DX: O07.1 Delayed or excessive hemorrhage following failed attempted termination of pregnancy (principal); F17.290 Nicotine dependence, other tobacco product, uncomplicated; F12.90 Cannabis use, unspecified, uncomplicated; Z87.59 Personal history of other complications of pregnancy, childbirth and the puerperium
CPT/HCPCS: 36415; 80053; 81001; 84702; 85025; 96360; 96361; 99284

== ENCOUNTER 2023-11-09 22:28 | Emergency (ER) | payer BC, OTHER ==
[2023-11-09 23:07] VITALS: TEMP 98.6
--- NOTE | 2023-11-09 23:32 | ED ---
General Adult HPI - General Chief complaint: Burn/Smoke Inhalation Stated complaint: Rt Hand Burn Time Seen by Provider: 11/09/23 23:15 Source: patient Mode of arrival: ambulatory Limitations: no limitations - History of Present Illness Initial comments: 28-year-old female presenting with chief complaint of burn to the right hand. On night she was at work when she burned her hand with hot glue. She now has a very large blister to the palm of the right hand. Unable to move the hand due to fear of popping the blister. - Related Data Previous Rx's Medication Instructions Recorded Sertraline [Zoloft] 100 mg PO DAILY 30 Days tab 04/06/21 lamoTRIgine [LaMICtal] 25 mg PO HS 30 Days tab 04/06/21 traZODone HCL [Desyrel] 100 mg PO HS PRN 30 Days tab 04/06/21 metroNIDAZOLE [Flagyl] 500 mg PO BID #14 tab 03/23/22 Multivit No.40/Iron/Folat1/Dha 1 each PO DAILY #30 capsule 10/26/22 [Prenate Essential Softgel] Cephalexin [Keflex] 500 mg PO Q6HR 7 Days #28 cap 11/09/23 Allergies Allergy/AdvReac Type Severity Reaction Status Date / Time No Known Allergies Allergy Verified 11/09/23 23:04 Review of Systems ROS Statement: Those systems with pertinent positive or pertinent negative responses have been documented in the HPI. ROS Other: All systems not noted in ROS Statement are negative. Past Medical History Past Medical History: No Reported History Additional Past Medical History / Comment(s): Obstetric history: She has had one previous vaginal delivery. This is her second . She's had care with Dr. Horton. Blood type is A+, antibodies negative, rubella nonimmune, hepatitis B surface antigen negative, GBS positive, HIV nonreactive. History of Any Multi-Drug Resistant Organisms: None Reported Past Surgical History: No Surgical Hx Reported Past Anesthesia/Blood Transfusion Reactions: No Reported Reaction Past Psychological History: Anxiety, Bipolar, Depression Smoking Status: Vaper Past Alcohol Use History: None Reported Past Drug Use History: Marijuana - Past Family History Mother Family Medical History: Diabetes Mellitus, Hypertension General Exam Limitations: no limitations General appearance: alert, in no apparent distress Head exam: Present: atraumatic, normocephalic Eye exam: Present: normal appearance, EOMI Neck exam: Present: normal inspection. Absent: meningismus Respiratory exam: Absent: respiratory distress Cardiovascular Exam: Present: regular rate Right Hand Wrist exam: Present: full ROM, tenderness, swelling, other (Second-degree burn with large blister to the palm) Neurological exam: Present: alert, oriented X3 Psychiatric exam: Present: normal affect, normal mood Course Vital Signs 11/09/23 11/10/23 23:04 00:11 Temperature 98.6 F Pulse Rate 77 73 Respiratory 15 18 Rate Blood Pressure 115/76 125/85 O2 Sat by Pulse 100 100 Oximetry Medical Decision Making - Medical Decision Making Was pt. sent in by a medical professional or institution (, [facility], RECORDING STUDIO SET UP WORKER, urgent care, hospital, or senior care...) When possible be specific @ -No Did you speak to anyone other than the patient for history (EMS, parent, family, police, friend...)? What history was obtained from this source @ -No Did you review nursing and triage notes (agree or disagree)? Why? @ -I reviewed and agree with nursing and triage notes Were old charts reviewed (outside hosp., previous admission, EMS record, old EKG, old radiological studies, urgent care reports/EKG's, senior care records)? Report findings @ -No old charts were reviewed Differential Diagnosis (chest pain, altered mental status, abdominal pain women, abdominal pain men, vaginal bleeding, weakness, fever, dyspnea, syncope, headache, dizziness, GI bleed, back pain, seizure, CVA, palpatations, mental health, musculoskeletal)? @ -First-degree burn, second-degree burn, third-degree burn, this is not an all-inclusive list EKG interpreted by me (3pts min.). @ -As above X-rays interpreted by me (1pt min.). @ -None done CT interpreted by me (1pt min.). @ -None done U/S interpreted by me (1pt. min.). @ -None done What testing was considered but not performed or refused? (CT, X-rays, U/S, labs)? Why? @ -None What meds were considered but not given or refused? Why? @ -None Did you discuss the management of the patient with other professionals (professionals i.e. , [facility], RECORDING STUDIO SET UP WORKER, lab, RT, psych nurse, social work specialist, intellectual property lawyer, teacher, senior officer, case manager specialist)? Give summary @ -No Was smoking cessation discussed for >3mins.? @ -No Was critical care preformed (if so, how long)? @ -No Were there social determinants of health that impacted care today? How? (Homelessness, low income, unemployed, alcoholism, drug addiction, transportation, low edu. Level, literacy, decrease access to med. care, long-term, rehab)? @ -No Was there de-escalation of care discussed even if they declined (Discuss DNR or withdrawal of care, Hospice)? DNR status @ -No What co-morbidities impacted this encounter? (DM, HTN, Smoking, COPD, CAD, Cancer, CVA, ARF, Chemo, Hep., AIDS, mental health diagnosis, sleep apnea, morbid obesity)? @ -None Was patient admitted / discharged? Hospital course, mention meds given and route, prescriptions, significant lab abnormalities, going to OR and other pertinent info. @ -28-year-old female presenting with chief complaint of burn to the right palm. This occurred at work on . She has a large blister. Due to the size of the blister the blister was lanced and drained. The wound was dressed using bacitracin nonadhesive dressing and Kerlix. She is started on Keflex. Educated on wound care and signs of infection. Discharged. Follow-up with PCP. Report back to ER with any new or worsening symptoms. Discussed return peter eters and answered all questions. Patient conveyed verbal understanding and agreed to the plan. I discussed this case in detail with my attending Dr. Leblanc Undiagnosed new problem with uncertain prognosis? @ -No Drug Therapy requiring intensive monitoring for toxicity (Heparin, Nitro, Insulin, Cardizem)? @ -No Were any procedures done? @ -No Diagnosis/symptom? @ -Second-degree burn Acute, or Chronic, or Acute on Chronic? @ -Acute Uncomplicated (without systemic symptoms) or Complicated (systemic symptoms)? @ -uncomplicated Side effects of treatment? @ -No Exacerbation, Progression, or Severe Exacerbation? @ -No Poses a threat to life or bodily function? How? (Chest pain, [place], [place], pneumonia, PE, COPD, DKA, ARF, appy, cholecystitis, CVA, Diverticulitis, Homicidal, Suicidal, threat to staff... and all critical care pts) @ -Unlikely Disposition Clinical Impression: Second degree burn Disposition: HOME SELF-CARE Condition: Good Instructions (If sedation given, give patient instructions): Second-Degree Burn (ED) Additional Instructions: Follow-up with PCP. Report back to ER with any new or worsening symptoms. Take medication as prescribed. Take Motrin Tylenol as needed for pain. Keep the wound clean dry and covered. Replace your dressing and antibiotic ointment daily. Prescriptions: Cephalexin [Keflex] 500 mg PO Q6HR 7 Days #28 cap Is patient prescribed a controlled substance at d/c from ED?: No Referrals: Leana Flanagan MD [Primary Care Provider] - 1-2 days Time of Disposition: 23:31
[2023-11-09] MEDS: CEPHALEXIN 500MG STARTER PACK 4 CAP BTL PO STA (23:58)
[2023-11-09] MEDS: BACITRACIN ZINC 500 UNIT/GM OINT 28.4 GM TUBE TOPICAL ONE (23:58)
[2023-11-10 00:11] VITALS: BP 125/85; PULSE 73; RESP 18
== END 2023-11-10 00:11 | disposition home or self-care (01) ==
LOC: EC 22:28
CPT/HCPCS: 16020; 99283